=== PATIENT | female | born 1970 | race Caucasian/White ===

== ENCOUNTER → 2017-12-03 18:37 | Outpatient (CLI) | payer OTHER, SELFPAY ==
[2017-12-03 18:43] LABS: Color, Urine Yellow (Yellow); Glucose, Dipstick Normal (Normal); Ketone-Dipstick Negative (Negative); Leukocyte Esterase-Dipstick 500 /ul (Negative); Nitrite-Dipstick Negative (Negative); Occult Blood-Urine 50 /ul (Negative); Protein-Dipstick Negative (Negative); Specific Gravity, Urine 1.005 (1.002-1.030); Urine Bilirubin Dipstick Negative (Negative); Urine Clarity Clear (Clear); Urine Urobilinogen Normal (Normal)
== END ==
PROVIDERS: PCP Family Medicine; Visit Provider Urology
DX: R31.9 Hematuria, unspecified (principal)
CPT/HCPCS: 81002; 87086; 87088; 87186

== ENCOUNTER → 2018-06-24 17:14 | Outpatient (CLI) | payer OTHER, SELFPAY | PROVIDERS: PCP Family Medicine; Referring Provider Nurse Practitioner Adult Health; Visit Provider Nurse Practitioner Adult Health | DX: R30.0 Dysuria (principal); R82.998 Other abnormal findings in urine | CPT/HCPCS: 87086 ==

== ENCOUNTER → 2018-12-09 12:20 | Outpatient (CLI) | payer OTHER, SELFPAY | PROVIDERS: PCP Family Medicine; Referring Provider Nurse Practitioner Adult Health; Visit Provider Nurse Practitioner Adult Health | DX: R30.0 Dysuria (principal) | CPT/HCPCS: 87086 ==

== ENCOUNTER → 2019-03-17 | Outpatient (CLI) | payer OTHER, SELFPAY ==
--- NOTE | 2019-03-17 08:18 | CT_ITS ---
STUDY: CT ABDOMEN AND PELVIS WITH AND WITHOUT CONTRAST REASON FOR EXAM: Female, 48 years old. Case miscarrying RADIATION DOSAGE (If Supplied By Facility): CTDIvol = ( 16.27 ) mGy, DLP = ( 1347.50 ) mGycm TECHNIQUE: Transaxial images were obtained from the dome of the diaphragm to the symphysis pubis without oral contrast. 100mL IV Isovue 300 was administered. Sagittal and coronal images were reconstructed. Individualized dose optimization techniques were used for this CT. COMPARISON: None. FINDINGS: The visualized lung bases are unremarkable. The visualized portions of the heart are within normal limits. Metallic clips seen at the gastroesophageal junction. There is 2.8 x 2.4 cm almost exophytic cyst involving the lateral aspect of the left lobe of the liver. There is a second cyst measures 1.5 cm involving segment 7 and a third 1 cm cyst noted involving segment 8, the rest of the liver reveals no evidence of focal lesion or abnormal enhancement. The spleen is not enlarged no focal lesion. Both suprarenal glands are within normal limits. The pancreas is unremarkable. Both kidneys are normal in size, shape and position, no hydronephrosis or stone formation. The gallbladder is within normal limits no gallstones. The small bowel is within normal limits. The colon is loaded with stool, the appendix is intact, no fat stranding. Opaque medical pills are seen in the proximal and distal small bowel. The urinary bladder is unremarkable. The aorta and IVC are within normal limits. There is no free air or free fluid within the peritoneal cavity. CT/CT Abd/Pelvis W/WO Contrast IMPRESSION: Benign-appearing cysts in the liver Otherwise negative CT scan with and without contrast. Electronically Signed: Bela Dewittbrenton, at 13:23 EDT Tel , Service support ,
== END | disposition home or self-care (01) ==
LOC: CT 08:16
PROVIDERS: Family Provider Nurse Practitioner Primary Care; PCP Nurse Practitioner Primary Care; Referring Provider Nurse Practitioner Adult Health; Visit Provider Nurse Practitioner Adult Health
DX: R31.9 Hematuria, unspecified (principal)
CPT/HCPCS: 74178; Q9967

== ENCOUNTER → 2019-04-16 | Outpatient (CLI) | payer OTHER, SELFPAY | END | disposition home or self-care (01) | LOC: LAB 15:21 | PROVIDERS: Family Provider Nurse Practitioner Primary Care; PCP Nurse Practitioner Primary Care; Referring Provider Urology; Visit Provider Urology | DX: N39.0 Urinary tract infection, site not specified (principal) | CPT/HCPCS: 87086; 87088 ==

== ENCOUNTER → 2019-09-24 14:56 | Outpatient (CLI) | payer OTHER, SELFPAY | PROVIDERS: Family Provider Nurse Practitioner Primary Care; PCP Nurse Practitioner Primary Care; Visit Provider Nurse Practitioner Adult Health | DX: R30.0 Dysuria (principal) | CPT/HCPCS: 87086 ==

== ENCOUNTER → 2019-11-20 15:36 | Outpatient (CLI) | payer OTHER, SELFPAY ==
--- NOTE | 2019-11-20 15:39 | RAD_ITS ---
STUDY: X-RAY - LUMBAR SPINE REASON FOR EXAM: Female, 49 years old. INCREASED LOWER BACK PAIN TECHNIQUE: 5 view(s) of the lumbar spine were obtained. COMPARISON: None FINDINGS: Normal lumbar lordosis. There is no substantial scoliosis. There is a normal alignment of the vertebrae. There is a grade 1 anterolisthesis of L4 relative to L3 and L5. There is narrowing of the L4-5 disc space. The soft tissue structures are unremarkable. RAD/L/S Spine Min 4 Views IMPRESSION: Grade 1 anterolisthesis of L4 relative to L3 and L5. Narrowing of the L4-5 disc space. Electronically Signed: Stuart Lundy MD at 16:08 EST , Service support ,
== END ==
PROVIDERS: PCP Nurse Practitioner Primary Care; Referring Provider Nurse Practitioner Family; Visit Provider Nurse Practitioner Family
DX: M54.9 Dorsalgia, unspecified (principal); G89.29 Other chronic pain
CPT/HCPCS: 72110

== ENCOUNTER → 2019-11-24 | Outpatient (CLI) | payer OTHER, SELFPAY ==
--- NOTE | 2019-11-24 14:15 | EMB_PTH ---
PATIENT: LATIA STOCKTON LOC: [facility] U#:[id number] AGE/SX: 49/F ROOM: RE11/24/[address]: Dr. Jet Davalos MD : 1970 BED: DIS: 11/24/2019 SPEC #: [id number] RECD: 11/25/19 10:48 STATUS: RANJIT BARGER #: [id number] EMILIO: 11/24/19 14:[address]: Jet Davalos DEPT: SURGICAL PATHOLOGY RECD BY: Bradley Garvey ENTERED: 11/25/19 11:07 SP TYPE: ENDONestor BX/C ADALBERTO DR: Dayana Romano, AQUATIC FACILITY MANAGER-C Tissues: Endometrium, NOS Procedures: Surgery Specimen Level IV HEADER OPERATION: Endometrial biopsy PRE-OP DIAGNOSIS: N93.9 TISSUE SUBMITTED: Endometrial biopsy MICROSCOPIC DIAGNOSIS Endometrial biopsy: Proliferative endometrium. SJ:nicole 11/26/19 MICROSCOPIC DESCRIPTION Slides are reviewed. GROSS DESCRIPTION Received in fixative is one container labeled with the patient's name and designated EM biopsy. The specimen consists of multiple fragments of hemorrhagic jordan mucoid tissue that in aggregate measure 2 x 0.4 x 0.1 cm. The specimen is totally submitted in one cassette. / SJ:nicole 11/25/19 TC:4 CPT: 17208
== END | disposition home or self-care (01) ==
LOC: LABSPEC 11-25 11:17
PROVIDERS: PCP Nurse Practitioner Primary Care; Referring Provider Obstetrics & Gynecology; Visit Provider Obstetrics & Gynecology
DX: N85.8 Other specified noninflammatory disorders of uterus (principal); N92.0 Excessive and frequent menstruation with regular cycle
CPT/HCPCS: 88305

== ENCOUNTER 2020-05-09 08:47 | Day surgery (SDC) | payer OTHER, SELFPAY ==
[2020-05-04 11:38] LABS: Hematocrit 39.5 % (37-47); Hemoglobin 12.8 g/dL (12.0-15.0); Mean Corp Hgb Conc 32.4 g/dL (32-36); Mean Corpuscular Hgb 32.2 pg (27.0-32.0); Mean Corpuscular Volume 99.5 fL (81-99); Mean Platelet Vol. 9.2 fl (6.2-12.0); Platelet Count 418 K/mm3 (150-450); RBC Distribution Width CV 13.3 % (11.6-14.6); RBC Distribution Width SD 49.3 fl (35.1-43.9); Red Blood Count 3.97 M/mm3 (4.2-5.4); White Blood Count 9.8 K/mm3 (4.4-11.0)
[2020-05-04 11:46] LABS: Prothrombin Time (Protime)PT. 12.5 SECONDS (11.7-14.9)
[2020-05-04 11:47] LABS: Partial Thromboplast Time 24.4 Seconds (24.1-36.2)
[2020-05-04 12:21] LABS: ALB/GLOB Ratio 0.9 RATIO (0.9-2.4); AST(SGOT) 15 U/L (15-37); Alanine Aminotransfer ALT/SGPT 28 U/L (13-56); Albumin, Serum 3.6 g/dL (3.2-5.0); Alkaline Phosphatase 62 U/L (45-117); Anion Gap 9 (5-15); BUN 10 mg/dL (7-18); BUN/Creat Ratio 10.2 RATIO (10-20); Calcium,Total 8.6 mg/dL (8.5-10.1); Chloride 113 mmol/L (98-107); Creatinine, Serum 0.98 mg/dL (0.55-1.02); EST Glomerular Filtration Rate 64 mL/min (>60); Est Glom Filt Rate - Afr Amer 77 mL/min (>60); Globulin 3.8 g/dL (2.2-4.2); Glucose 87 mg/dL (74-106); Potassium 3.6 mmol/L (3.5-5.1); Protein, Total 7.4 g/dL (6.4-8.2); Sodium Level 143 mmol/L (136-145)
--- NOTE | 2020-05-08 15:24 | PCM.HP.BLA ---
History and Physical Date of Admission: 05/09/20 Surgical History and Physical Perla Farris, a 49 year old female 2 0 0 0 2, presents for RAVH/RSO, left salpingectomy and possible vaginal hysterectomy on May 09, 2020 at 11:00. -- Menorrhagia, Uterine Fibroids -- Menses long, heavy and painful. 49 y.o. G 2 P 2 non-smoker with menses lasting 3 weeks. Spouse had Vasectomy for control. Reports she started approximately two years ago with skipping periods, then would have one that would be very painful, long and heavy. US done at [facility] on 10/21/19 with thickened Endometrial lining and Fibroid. Would like to stop the craziness. Reports she has felt weak periodically from all the bleeding previously and she is ready to have a Hysterectomy and be done. She stopped taking Provera as it was not helping her. Has a large mesh from hernia repair superior to umbilicus. Wants just right ovary out. If vag hyst possible then ok with leaving both ovaries. Heavy, painful prolonged periods which began 2 years ago. Perla claims it started gradually and has been present skipping periods in last year. It occurs intermittantly. EMBx normal; 3 month trial with intermittant Provera withdrawal not helpful; still bled most days. MEDICATIONS HISTORY: Patient is also takin. Advair Diskus 500 mcg-50 mcg/dose powder for inhalation, 1puff BID 2. amitriptyline 25 mg tablet, 1 qhs prn 3. diltiazem ER 360 mg capsule,24 hr,extended release, 1 qd 4. EpiPen 0.3 mg/0.3 mL injection, auto-injector, PRN 5. losartan 50 mg tablet, 1 qd 6. Singulair 10 mg tablet, 1 qd 7. Topamax 200 mg tablet, 1 BID 8. tramadol 50 mg tablet, 1 po q6hr PRN 9. valacyclovir 500 mg tablet, 1 tab BID or TID 10. Ventolin HFA 90 mcg/actuation aerosol inhaler, 2puffs BID 11. Wellbutrin XL 300 mg 24 hr tablet, extended release, 1 1/2tabs qd ALLERGIES: Sulfa (Sulfonamide Antibiotics), Severe nausea & vomiting, Codeine, Wheezing, Penicillins, Hives and/or rash, Gluten and Influenza-like illness Infections - Chicken pox Illnesses - Arthritis,Connective Tissue Dz, Accidents - None Hospitalizations - see surgery Review of Systems: GENERAL - Denies fever, or chills SKIN - Denies skin changes EYES - Denies visual changes EARS - Denies difficulty hearing NOSE - Denies nasal congestion or bleeding MOUTH - Denies sore throat or difficulty swallowing NECK - Denies pain or swelling RESPIRATORY - Denies shortness of breath or wheezing CARDIOVASCULAR - Denies palpitations or chest pain GASTROINTESTINAL - Denies nausea, vomiting, diarrhea, constipation GENITOURINARY - Denies dysuria, frequency of urination, incontinence of urine MUSCULOSKELETAL - Denies joint or muscle pain NEUROLOGICAL - Denies localized numbness or weakness PSYCHIATRIC - Denies depression or anxiety ENDOCRINE - Denies heat or cold intolerance, weight loss or gain HEMATO-IMMUNOLOGIC - Denies excessive bleeding with cuts SOCIAL HISTORY: Alcohol Use - occasionally Smoking - Never Diet - Gluten Free Lifestyle - moderate stress lifestyle and Exercise - active Seat Belt Use - always 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 2006 & 2017 Hernia Repair . 11/2017 Loop recorder Implant . 11/2015 Sliding Hiatal Hernia Repair PHYSICAL EXAM BP- 138/70 Sitting, Right arm, regular cuff Weight- 200.98874 lbs Height- 66 inch BMI:32.35 CONSTITUTIONAL - NAD, well nourished, and well developed SKIN - No rash, lesions, or ulcers HEENT - Normocephalic, PERRLA, EOMI NECK - No nodes, no nuchal rigidity and thyroid normal size and texture LYMPH NODES - Palpation of lymph nodes in neck and groins within normal limits LUNGS - CTA x2 without wheezes, crackles or rales CARDIAC - Regular rate and rhythm without rubs, murmurs, or gallops ABDOMEN - Without hepatosplenomegaly, distention, masses, rebound, or guarding; normal bowel sounds; no hernias and midline incision superior to umbilicus NEUROLOGICAL - Cranial nerves II-XII grossly intact PSYCHIATRIC - A and O to time, place, person, mood and affect External Genital Vagina - non-tender without lesions Urethra/Urethral Meatus - non-tender Bladder - non-tender Vagina - vaginal chang are pink and moist without loss of rugae and no evidence of atrophy Cervix - without cervical motion tenderness and has normal size and features without evident lesions Uterus - multiparous size 6 cm & wt 75-125 g Adnexa - clear without masses or tenderness ASSESSMENT/PLAN: 1. Premenopause Menorrhagia and Uterine Leiomyoma Unspec EMBx OK. Intermittent provera withdrawal not helpful. Would like to proceed with RAVH/BS/RO. Discussed RBAs and all questions answered. If Vaginal Hysterectomy possible pt ok with this option to avoid disrupting abdominal mesh.
[2020-05-09] VITALS (12 sets, daily range): BP systolic 106–138; BP diastolic 57–74; PULSE 64–88; RESP 16–18; TEMP 36.7–37.6; O2SAT 99–100; BMI 31.2
[2020-05-09 09:31] LABS: Internal QC Validated? YES +Cl - CLEAR BKGD; Pregnancy, Urine Negative Negative
[2020-05-09] MEDS: Lactated Ringers 1,000 ML 100 ML IV (09:58)
--- NOTE | 2020-05-09 10:55 | HYST_PTH ---
PATIENT: LATIA STOCKTON LOC: [facility] [place] U#:[id number] AGE/SX: 49/F ROOM: RE05/09/[address]: Dr. Jet Davalos MD : 1970 BED: DIS: 05/10/2020 SPEC #: [id number] RECD: 05/09/20 12:26 STATUS: RANJIT DENITA #: [id number] EMILIO: 05/09/20 10:[address]: Jet Davalos DEPT: SURGICAL PATHOLOGY RECD BY: Ken Fallon ENTERED: 05/09/20 12:37 SP TYPE: HYSTERECT OTHR DR: Dayana Romano, ACQUISITION ASSOCIATE-C Tissues: Uterus, NOS Procedures: Surgery Specimen Level V HEADER OPERATION: Vaginal hysterectomy, right salpingo-oophorectomy PRE-OP DIAGNOSIS: Premenopause menorrhagia and uterine leiomyoma TISSUE SUBMITTED: Uterus, cervix, right fallopian tube and ovary MICROSCOPIC DIAGNOSIS Uterus, cervix, right fallopian tube and right ovary, vaginal hysterectomy and right salpingo-oophorectomy: Cervix - mild chronic inflammation. Endometrium - weakly secretory endometrium with focal changes consistent with exogenous hormone effect. Myometrium - intramural and subserosal leiomyomas (largest measuring 2.5 cm in greatest dimension). - Adenomyosis. Right fallopian tube - no pathologic diagnosis. Right ovary - a physiologic hemorrhagic corpus luteum cyst. SJ:nicole 05/10/20 MICROSCOPIC DESCRIPTION Slides are reviewed. GROSS DESCRIPTION Received in fixative is one container labeled with the patient's name and designated uterus, cervix, bilateral fallopian tubes and right ovary. The specimen consists of a hysterectomy specimen consisting of uterus with cervix and detached one fallopian tube and ovary identified as right. The right fallopian tube is not identified in the submitted specimen. The uterus with cervix weighs 173 gm and measures 11?x 6 x 5.5 cm. The serosal surface shows a small, jordan, subserosal nodule. The ectocervical mucosa is focally eroded. The external os is patulous in contour. The endocervical canal measures 4 cm in length and the endocervical mucosa is jordan, glistening and unremarkable. The triangular endometrial cavity measures 5 cm in length and up to 3 cm in width. The endometrium is jordan, glistening without any mass lesion and measures 0.1 cm in thickness. Sections of the uterine wall reveal multiple intramural masses and one small subserosal nodular mass. The largest mass measures 2.5 cm in diameter. Sections of these masses reveal jordan whorled cut surfaces without areas of hemorrhage, necrosis or cystic degeneration. The uninvolved uterine wall measures up to 3.5 cm in thickness. The fallopian tube measures 5 cm in length and 0.5 cm in diameter. The fimbrial end is identified. Sections reveal unremarkable cut surfaces. No tubo-ovarian adhesions are identified. The left ovary measures 2 x 2 x 1?cm. Sections reveals a hemorrhagic corpus luteum measuring 1 cm in greatest dimension. Airport Duty Manager sections are submitted in ten cassettes as follows: 1 - anterior cervix, 2 - posterior cervix, 3 & 4 - anterior uterine wall, 5 & 6 - posterior uterine wall, 7 - smaller nodular masses, 8 - largest nodular mass, 9 - right ovary, 10 - right fallopian tube and ovary. / SJ:nicole 05/09/20 TC:3 CPT: 05061
--- NOTE | 2020-05-09 11:56 | OP.PCM_ITS ---
Report of Operation Date of Procedure: 05/09/20 Pre-Operative Diagnosis: Menorrhagia, Uterine Fibroids Post-Operative Diagnosis: Menorrhagia, Uterine Fibroids Surgery/Procedure Performed:: Vaginal Hysterectomy and Right Salpingo- Oophorectomy Description of Surgical Findings:: 12 cm uterus with cervix that prolapsed to within 2 cm of the vaginal introitus. Scar on upper abdomen vertical consistent with prior large mesh placement. Normal-appearing fallopian tubes and ovaries. Moderate cystocele and rectocele. big data software engineer: Rasheed Baron big data software engineer: Nae Butler Type of Anesthesia:: General - Endotracheal Anesthesiologist: Josh Martinez Specimen's removed: Uterus and right fallopian tube and ovary Drains: Rivera to straight drain Estimated Blood Loss (mL): 100 cc Fluids Replaced: Crystalloid Description of Procedure: Surgeon: Jet Davalos MD, FACOG Indications: This is a 49-year-old who is been having problems with extremely heavy periods lasting 3 out of 4 weeks monthly. She also had a prior large mesh placement and is known to have adhesions. Conservative measures have not been helpful. Given this the patient desires that we proceed the above procedure. She was scheduled for a robotic assisted vaginal hysterectomy with possible vaginal hysterectomy should this be feasible. She has been counseled regarding the risk and indications of this procedure including the possibility of b leeding, infection, and injury to surrounding structures such as bowel bladder. All questions were answered. Procedure: Patient was taken to the operating room where after induction of general anesthesia she was placed in the dorsal lithotomy position and prepped and draped in the usual sterile fashion. The prolapse of the uterus and vagina was assessed and it was felt that vaginal hysterectomy would be feasible. A Rivera catheter was placed. Anterior cervix was grasped with a tenaculum and anterior cervix circumscribed with cautery on a setting of 35 W coagulation. Anterior vaginal mucosa was undermined and anterior peritoneum was easily entered. The posterior aspect of the cervix was circumscribed with a knife and posterior peritoneum easily entered. Progressive bites were taken on either side of the uterine cervix and each pedicle ligated with 0 Vicryl suture. Superior pedicles were ligated ?2 with 0 Vicryl suture and sidewall pedicles were examined and oversewn where necessary with [id number] 0 Vicryl suture to achieve hemostasis. The right fallopian tube and ovary were also removed ligating the pedicle with 0 Vicryl suture x2. Left fallopian tube and ovary appeared normal. After removing the uterus and right fallopian tube and ovary, the posterior vaginal cuff was oversewn with running locked 0 Vicryl suture. Hemostasis was noted and peritoneum was closed in a pursestring fashion incorporating superior pedicles into the stitch. Vaginal cuff was then closed front to back with interrupted [id number] 0 Vicryl suture. Hemostasis was noted. Patient tolerated the procedure well was taken to recovery room in satisfactory condition; sponge instrument and needle counts were all reportedly correct. Estimated blood loss for the case was less than 100 cc. Cefotan 2 g IV was given prior to beginning the operative procedure. There were no apparent complications of the surgery. Specimen to pathology was uterus and right fallopian tube and ovary Grafts/Implants Used: None - Complications None - Admit VTE Documentation VTE Present on Admission: Yes VTE Mechan Device Prophylaxis: SCD's VTE Pharm Prophylaxis ordered?: Yes
--- NOTE | 2020-05-09 12:07 | DCINST_ITS ---
Discharge Diet: No Restrictions Discharge Activity: Return to Normal Activity, May Not Drive - while taking narcotic pain medications., May Shower, May Take a Tub Bath May resume sexual activity in: 6-8 weeks Call your doctor if your incision/area has: Continuous Slow Oozing, Sudden Inc reased Bleeding, Increased Pain/ Swelling, Increased Redness, Foul Smelling Discharge Call your doctor if you observe: Fever of 101 or Higher, Inability to urinate, Inability to have a bowel movement, Using more than one pad per hour Allergies/Adverse Reactions: Allergies codeine Allergy (Verified 04/28/20 09:03) Anaphylaxis Penicillins [PCN] Allergy (Verified 04/28/20 09:03) Rash Sulfa (Sulfonamide Antibiotics) Allergy (Verified 04/28/20 09:03) Vomiting Medications to take at Discharge Albuterol Inhaler [Ventolin Hfa (SP)] 2 puff INHALATION Q6H PRN PRN 04/28/20 Amitriptyline HCl [Elavil] 25 mg PO PRN PRN 04/28/20 Apremilast [Otezla] 30 mg PO BID 04/28/20 Cyanocobalamin (Vitamin B-12) [Vitamin B-12] 1,000 mcg PO DAILY 04/28/20 Diltiazem HCl [Diltiazem ER] 360 mg PO DAILY 04/28/20 Epi Pen (for allergic rxn) 0.3 mg IM X1 04/28/20 Famciclovir [Famvir] 500 mg PO BID PRN 04/28/20 Fexofenadine HCl [Noemi Allergy] 60 mg PO DAILY 04/28/20 Fluticasone/Salmeterol [Advair 500-50 Diskus] 1 ea IH BID 04/28/20 Lansoprazole [Prevacid] 15 mg PO DAILY 04/28/20 Losartan Potassium [Cozaar] 50 mg PO DAILY 04/28/20 Magnesium Oxide [Magnesium] 400 mg PO DAILY 04/28/20 Montelukast [Singulair] 10 mg PO DAILY 04/28/20 Topiramate [Topamax] 200 mg PO BID 04/28/20 Vitamin E 100 unit PO DAILY 04/28/20 buPROPion XL [Wellbutrin Xl] 150 mg PO DAILY 04/28/20 buPROPion XL [Wellbutrin Xl] 300 mg PO DAILY 04/28/20 traMADol [Ultram (G)] 50 mg PO Q6H PRN PRN 04/28/20 Docusate Sodium [Colace] 100 mg PO BID PRN PRN #60 cap 05/09/20 Oxycodone [Oxyir] 5 mg PO Q6H PRN PRN 7 Days #10 tablet 05/09/20 The following prescriptions were given: Docusate Sodium [Colace] 100 mg PO BID PRN PRN #60 cap PRN Reason: Constipation Transmission Status: Pending to [facility] Oxycodone [Oxyir] 5 mg PO Q6H PRN PRN 7 Days #10 tablet PRN Reason: Pain Score 6-10/10 Transmission Status: Sent to [facility] Primary Care Physician: Dayana Romano NP-C [Primary Care Provider] - Test Results: Test results from this visit will be discussed in further detail at your follow- up appointment, if applicable. Please Follow Up With: Jet Davalos MD When: 2 to 3 weeks
[2020-05-09] MEDS: HYDROmorphone 1 MG/ML Syringe 0.5 MG IV (13:57)
[2020-05-09] MEDS: Albuterol 2.5 MG/3 ML VIAL.NEB. INHALATION ×2 (14:02→19:05)
[2020-05-09] MEDS: Dextrose 5%-Lactated Ringers 1,000 ML 125 ML IV ×2 (15:13→23:25)
[2020-05-09] MEDS: Ketorolac 30 MG/ML Syringe IV ×2 (17:16→23:36)
[2020-05-09] MEDS: 0.9% Saline Lock 10 ML Syringe IV (17:16)
[2020-05-09] MEDS: Budesonide Respules 0.5 MG/2 ML AMPUL.NEB. INHALATION (19:05)
[2020-05-09] MEDS: oxyCODONE 5 MG Tablet PO (19:48)
[2020-05-09] MEDS: Enoxaparin 30 MG/0.3 ML Syringe SC (21:25)
[2020-05-09] MEDS: Topiramate 200 MG Tablet PO (21:26)
[2020-05-09] MEDS: Montelukast 10 MG Tablet PO (21:26)
[2020-05-09] MEDS: Acetaminophen 500 MG Tablet 1000 MG PO (21:31)
[2020-05-10] VITALS: BP 139/77; PULSE 62; RESP 16; TEMP 37.1; O2SAT 100
[2020-05-10] MEDS: oxyCODONE 5 MG Tablet PO ×2 (02:50→10:57)
[2020-05-10 03:00] VITALS: BP 139/78; PULSE 67; RESP 16; TEMP 37; O2SAT 100
[2020-05-10] MEDS: Ketorolac 30 MG/ML Syringe IV ×2 (05:33→11:55)
[2020-05-10 05:51] LABS: Hemoglobin 11.5 g/dL (12.0-15.0); Mean Corp Hgb Conc 32.9 g/dL (32-36); Mean Corpuscular Volume 100.3 fL (81-99); Mean Platelet Vol. 9.2 fl (6.2-12.0); Platelet Count 338 K/mm3 (150-450); RBC Distribution Width CV 13.4 % (11.6-14.6); RBC Distribution Width SD 48.8 fl (35.1-43.9); Red Blood Count 3.49 M/mm3 (4.2-5.4); White Blood Count 10.9 K/mm3 (4.4-11.0)
[2020-05-10 06:04] LABS: Creatinine, Serum 0.91 mg/dL (0.55-1.02); EST Glomerular Filtration Rate 70 mL/min (>60); Est Glom Filt Rate - Afr Amer 85 mL/min (>60); Estimated Creatinine Clearance 70.01 ml/min
[2020-05-10 06:56] VITALS: PULSE 85; RESP 24; O2SAT 99
[2020-05-10] MEDS: Albuterol 2.5 MG/3 ML VIAL.NEB. INHALATION (06:56)
[2020-05-10] MEDS: Budesonide Respules 0.5 MG/2 ML AMPUL.NEB. INHALATION (06:56)
--- NOTE | 2020-05-10 08:13 | PN.OBGYN_ITS ---
Subjective: Patient without complaints. Tolerating diet well. Positive flatus. Rivera catheter still in so she has not yet voided. Minimal vaginal bleeding reported. Objective: Minimal vaginal bleeding reported. Hemoglobin and creatinine okay. Good urine output. - Physical Exam Vitals/I&O's: Vital Signs Temp Pulse Resp BP Pulse Ox 98.6 F 85 24 H 139/78 H 99 05/10/20 03:00 05/10/20 06:56 05/10/20 06:56 05/10/20 03:00 05/10/20 06:56 Oxygen Flow Rate (L/min) 6 Oxygen Delivery Method Room Air Weight: 193 lb 9.054 oz Body Mass Index (BMI) 31.2 Intake and Output for Last 24 Hours 05/08/20 05/09/20 05/10/20 23:59 23:59 23:59 Intake Total 2453.33 / 2753.33 1500 / 1500 Output Total 1650 / 2125 2225 / 2225 Balance 803.33 / 628.33 -725 / -725 Laboratory Results 05/09/20 09:10: Urine Test Negative 05/10/20 05:15: WBC 10.9, RBC 3.49 L, Hgb 11.5 L, Hct 35.0 L, MCV 100.3 H, MCH 33.0 H, MCHC 32.9, RDW Std Deviation 48.8 H, RDW Coeff of Og 13.4, Plt Count 338, MPV 9.2 05/10/20 05:15: Creatinine 0.91, Estim Creat Clear Calc 70.01, Est GFR (MDRD) Af Amer 85, Est GFR (MDRD) Non-Af 70 Current Medications Acetaminophen (Tylenol) 1,000 mg PO Q8H PRN PRN PRN Reason: Pain Score 1-3/10 or Fever Last Admin: 05/09/20 21:31 Dose: 1,000 mg Documented by: Acyclovir (Zovirax) 800 mg PO BID PRN PRN PRN Reason: COLD SORES Albuterol Sulfate (Ventolin Aerosols) 2.5 mg INHALATION Q6H PRN PRN PRN Reason: ASTHMA Albuterol Sulfate (Ventolin Aerosols) 2.5 mg INHALATION Q6HWA.RT NIKO Last Admin: 05/10/20 06:56 Dose: 2.5 mg Documented by: Amitriptyline HCl (Elavil) 25 mg PO QHS PRN PRN PRN Reason: SLEEP Budesonide (Pulmicort Aerosol) 0.5 mg INHALATION Q12H.RT [facility] Last Admin: 05/10/20 06:56 Dose: 0.5 mg Documented by: Bupropion HCl (Wellbutrin Xl) 150 mg PO DAILY [facility] Bupropion HCl (Wellbutrin Xl) 300 mg PO DAILY [facility] Diltiazem HCl (Cardizem Cd) 360 mg PO DAILY [facility] Docusate Sodium (Colace) 100 mg PO BID PRN PRN PRN Reason: Constipation Hydromorphone HCl (Dilaudid Inj) 0.5 mg IV Q3H PRN PRN PRN Reason: Pain Score 4-10/10 Last Admin: 05/09/20 13:57 Dose: 0.5 mg Documented by: Dextrose/Lactated Ringer's () 1,000 mls @ 125 mls/hr IV .Q8H [facility] Last Admin: 05/10/20 05:33 Dose: Not Given Documented by: Ketorolac Tromethamine (Toradol (Bkc)) 30 mg IV Q6H [facility] Stop: 05/14/20 17:31 Last Admin: 05/10/20 05:33 Dose: 30 mg Documented by: Loratadine (Claritin) 10 mg PO DAILY [facility] Losartan Potassium (Cozaar) 50 mg PO DAILY [facility] Magnesium Oxide (Mag-Ox 400) 400 mg PO DAILY [facility] Montelukast Sodium (Singulair) 10 mg PO QHS [facility] Last Admin: 05/09/20 21:26 Dose: 10 mg Documented by: Ondansetron HCl (Zofran) 4 mg IV Q4H PRN PRN PRN Reason: NAUSEA Oxycodone HCl (Oxyir) 5 mg PO Q4H PRN PRN PRN Reason: Pain Score 4-10/10 Last Admin: 05/10/20 02:50 Dose: 5 mg Documented by: Pantoprazole Sodium (Protonix) 20 mg PO DAILY [facility] Simethicone (Mylicon) 80 mg PO PCHS [facility] Last Admin: 05/09/20 21:24 Dose: 80 mg Documented by: Sodium Chloride () 10 - 40 ml IV UD PRN PRN Reason: SALINE FLUSH Last Admin: 05/09/20 17:16 Dose: 10 ml Documented by: Topiramate (Topamax) 200 mg PO BID NIKO Last Admin: 05/09/20 21:26 Dose: 200 mg Documented by: Medical Necessity - Tobacco Use Smoking Status: Former smoker Tobacco Use: Non-smoker Assessment/Plan Doing well postoperative day #1 status post vaginal hysterectomy and right salpingo-oophorectomy. Will discontinue Rivera and released to home when able to void on own. Home-going instructions given.
[2020-05-10 09:00] VITALS: BP 127/70; PULSE 70; RESP 16; TEMP 37.2; O2SAT 100
[2020-05-10] MEDS: Loratadine 10 MG Tablet PO (10:50)
[2020-05-10] MEDS: Pantoprazole Sodium 20 MG Tablet PO (10:50)
[2020-05-10] MEDS: dilTIAZem CD 180 MG Capsule 360 MG PO (10:50)
[2020-05-10] MEDS: Topiramate 200 MG Tablet PO (10:51)
[2020-05-10] MEDS: buPROPion (XL) 150 MG TABLET.XL PO (10:51)
[2020-05-10] MEDS: buPROPion (XL) 300 MG TABLET.XL PO (10:51)
[2020-05-10] MEDS: Magnesium Oxide 400 MG Tablet PO (10:51)
[2020-05-10] MEDS: Losartan Potassium 50 MG Tablet PO (10:51)
--- NOTE | 2020-05-10 11:43 | PHA.DC.MC ---
Pharmacy Service has performed discharge medication reconciliation and counseling for this patient. The patient was counseled on the following discharge medications and changes in medications for homegoing were reviewed. 1. OXYCODONE 2. DOCUSATE The Reason for Use, instructions for use, and potential side effects were reviewed for all new medications. The patient's questions regarding all of their medications were answered. The patient was able to verbally demonstrate an understanding of their discharge medications. Home Medications Albuterol Inhaler [Ventolin Hfa (SP)] 2 puff INHALATION Q6H PRN PRN 04/28/20 Amitriptyline HCl [Elavil] 25 mg PO PRN PRN 04/28/20 Apremilast [Otezla] 30 mg PO BID 04/28/20 Cyanocobalamin (Vitamin B-12) [Vitamin B-12] 1,000 mcg PO DAILY 04/28/20 Diltiazem HCl [Diltiazem ER] 360 mg PO DAILY 04/28/20 Epi Pen (for allergic rxn) 0.3 mg IM X1 04/28/20 Famciclovir [Famvir] 500 mg PO BID PRN 04/28/20 Fexofenadine HCl [Noemi Allergy] 60 mg PO DAILY 04/28/20 Fluticasone/Salmeterol [Advair 500-50 Diskus] 1 ea IH BID 04/28/20 Lansoprazole [Prevacid] 15 mg PO DAILY 04/28/20 Losartan Potassium [Cozaar] 50 mg PO DAILY 04/28/20 Magnesium Oxide [Magnesium] 400 mg PO DAILY 04/28/20 Montelukast [Singulair] 10 mg PO DAILY 04/28/20 Topiramate [Topamax] 200 mg PO BID 04/28/20 Vitamin E 100 unit PO DAILY 04/28/20 buPROPion XL [Wellbutrin Xl] 150 mg PO DAILY 04/28/20 buPROPion XL [Wellbutrin Xl] 300 mg PO DAILY 04/28/20 traMADol [Ultram (G)] 50 mg PO Q6H PRN PRN 04/28/20 Docusate Sodium [Colace] 100 mg PO BID PRN PRN #60 cap 05/09/20 Oxycodone [Oxyir] 5 mg PO Q6H PRN PRN 7 Days #10 tab 05/09/20 The patient's discharge medication list was reviewed for discrepancies and discrepancies were resolved.
[2020-05-10] MEDS: 0.9% Saline Lock 10 ML Syringe IV (11:55)
[2020-05-10] MEDS: Ondansetron 4 MG/2 ML Vial IV (11:55)
[2020-05-10 12:08] VITALS: BP 151/79; PULSE 79; RESP 18; TEMP 37.2; O2SAT 100
== END 2020-05-10 12:09 | disposition home or self-care (01) ==
LOC: SDC 08:47 → AC 08:48 → MS3 12:24
PROVIDERS: Anesthesiology; PCP Nurse Practitioner Primary Care; Referring Provider Obstetrics & Gynecology; Visit Provider Obstetrics & Gynecology
PROC: 0UT94ZZ Resection of Uterus, Percutaneous Endoscopic Approach (ICD-10-PCS; CPT 58262; principal; 2020-05-09 10:35)
DX: D25.1 Intramural leiomyoma of uterus (principal); D25.2 Subserosal leiomyoma of uterus; N83.11 Corpus luteum cyst of right ovary; N92.4 Excessive bleeding in the premenopausal period; Z11.59 Encounter for screening for other viral diseases; I11.0 Hypertensive heart disease with heart failure; I50.9 Heart failure, unspecified; K58.9 Irritable bowel syndrome, unspecified; K21.9 Gastro-esophageal reflux disease without esophagitis; F41.9 Anxiety disorder, unspecified; F32.9 Major depressive disorder, single episode, unspecified; L40.50 Arthropathic psoriasis, unspecified; M19.90 Unspecified osteoarthritis, unspecified site; G43.909 Migraine, unspecified, not intractable, without status migrainosus; J45.909 Unspecified asthma, uncomplicated; Z79.899 Other long term (current) drug therapy; Z87.891 Personal history of nicotine dependence
CPT/HCPCS: 00944; 58262; 36415; 80053; 81025; 82565; 85027; 85610; 85730; 86850; 86900; 86901; 87635; 88307; 94640; 94799; 99251; J7120; A4216; G0463; J2405; U0003

== ENCOUNTER 2020-06-04 14:20 | Emergency (ER) | payer OTHER, SELFPAY ==
[2020-05-09 13:15] VITALS: BMI 31.2
[2020-06-04 14:21] VITALS: BP 147/73; PULSE 86; RESP 16; TEMP 36.7; O2SAT 100; BMI 32.3
--- NOTE | 2020-06-04 14:24 | CT_ITS ---
STUDY: CT ABDOMEN AND PELVIS WITHOUT CONTRAST REASON FOR EXAM: Female, 49 years old. STABBING PAINS LOWER ABDOMEN. S/P HYSTERECTOMY (STILL HAS LEFT OVARY) 4 WEEKS AGO. HISTORY OF UTI''S AND HIATAL HERNIA REPAIR RADIATION DOSAGE (If Supplied By Facility): CTDIvol = ( 7.55 ) mGy, DLP = ( 356.55 ) mGycm TECHNIQUE: Transaxial images were obtained from the dome of the diaphragm to the symphysis pubis without oral contrast, and without intravenous contrast. Sagittal and coronal images were reconstructed. Individualized dose optimization techniques were used for this CT. COMPARISON: March 17 2019 FINDINGS: Lung bases are clear. There is thickening and mild dilation of the distal esophagus with suture line at the diaphragmatic hiatus. There is no intestinal obstruction. There is sigmoid diverticulosis without diverticulitis. There are 3 hepatic cysts. There is no biliary dilation. Gallbladder is normal. Kidneys, adrenals, spleen and pancreas are intact. There are no urinary calculi or hydronephrosis. Osseous structures are intact with stable grade 1 L4-L5 degenerative anterolisthesis. CT/Abdomen/Pelvis without Cont IMPRESSION: No acute abdominal findings. Thickened distal esophagus, incompletely evaluated, specialty referral is advised. Electronically Signed: Ankit Corbett, at 15:30 EDT Tel , Service support ,
--- NOTE | 2020-06-04 14:35 | ED.DCSUM_ITS ---
History of Present Illness Chief Complaint: Abd Pain Informant: Patient Onset: Days Maximum Severity: Mild Narrative: The patient complains of intermittent paroxysmal sharp stabbing pains to the lower abdominal area, she is about 4 weeks status post vaginal hysterectomy related to vaginal bleeding and pelvic pain, she is eating and drinking well normal bowel bladder habits no vaginal bleeding or discharge she is currently asymptomatic. Nothing triggers the pain, she is able to do all of her daily activities Past Medical History - Allergies and Home Meds Allergies/Adverse Reactions: Allergies codeine Allergy (Verified 06/04/20 14:21) Anaphylaxis Penicillins [PCN] Allergy (Verified 06/04/20 14:21) Rash Sulfa (Sulfonamide Antibiotics) Allergy (Verified 06/04/20 14:21) Vomiting Primary Care Physician: Dayana Romano COUNT TEAM MEMBER, COUNT TEAM MEMBER-C [Primary Care Provider] - Past Medical History: - - Clues as above she also has a back problem she had lumbar spine injections 2 weeks ago Smoking Status: Former smoker Review of Systems General: Denies: Chills, Fever, Sweats Eyes: Denies: Visual changes - bilaterally, Diplopia ENT: Denies: Rhinorrhea, Sore throat Cardiovascular: Denies: Chest pain, Palpitations Respiratory: Denies: Dyspnea, Cough, Dyspnea on exertion Gastrointestinal: Reports: Abdominal pain. Denies: Nausea, Vomiting, Diarrhea, Melena, Hematochezia Genitourinary: Denies: Dysuria, Hematuria, Frequency Musculoskeletal: Denies: Back pain, Extremity Pain Skin: Denies: Rash, Wounds Neurological: Denies: Headache, Weakness, Numbness Physical Exam Vital Signs/Narrative: Vital Signs Temp Pulse Resp BP Pulse Ox 06/04/20 14:21 98.1 F 86 16 147/73 H 100 General: Well nourished, Well developed, No Acute Distress Head: Normocephalic, Atraumatic Eyes: Perrl, EOMI ENT: Moist mucous membranes, No rhinorrhea Neck: Supple, Nontender Cardiovascular: Regular rate, Regular rhythm, No murmurs Respiratory: No distress, CTA bilaterally, Chest nontender Abdomen: Soft, Nontender, Nondistended, Normal bowel sounds, - - She points to the lower left and right quadrants there is no areas of tenderness rebound guarding here no fullness, she denies any vaginal bleeding or discharge her back is unremarkable her extremities are unremarkable Back: Nontender, Normal Inspection Extremities: Nontender, No edema Skin: Normal color, No rash Neurological: Alert, Oriented x3, Cranial nerves II-XII grossly intact, Normal Strength, Normal Sensation Psychological: Normal affect, Normal Mood Diagnostic/Tx/Re-eval - Medical Decision Making Paroxysms of sharp intermittent stabbing pain for a few days given her age given all the above screening labs CT ED screening evaluation results are unremarkable including CT see those reports, CT notes some thickening distal esophagus cannot further delineate Please note the patient has had a history of surgery to repair a sliding hiatal hernia and she has been seen by GI Discussed all the above with patient she has no symptoms currently explained to her the exact etiology of these paroxysmal sharp pain are unclear she will follow-up with her affirmative action officer outpatient providers and we also discussed differential related to the distal esophagus and she would require additional management to determine etiology of this abnormality incompletely seen on CT we did discuss the concept of cancer other occult conditions and she will follow-up Home stable Final impression intermittent sharp paroxysms of pain to the pelvis, status post vaginal hysterectomy, thickened distal esophagus incompletely seen on CT ED Disposition - Plan for ED Patient: Instructions: ED Abdominal Pain Unkn Cause Fem Referrals: Dayana Romano NP, COUNT TEAM MEMBER-C [Primary Care Provider] - Additional Instructions: Please follow-up with your outpatient providers for all the above in addition you will need additional management related to thickened esophagus incompletely seen on CT
[2020-06-04] MEDS: 0.9% Normal Saline 1,000 ML 125 ML IV (14:41)
[2020-06-04] MEDS: Ondansetron 4 MG/2 ML Vial IV (14:41)
[2020-06-04] MEDS: morphine 8 MG/ML Syringe IV (14:42)
[2020-06-04 14:46] LABS: Absolute Lymphocyte Count 1.86 X10^3/uL (0.83-4.51); Absolute Neutrophil Count 5.8 X10^3/uL (2.0-7.7); Basophil# 0.03 X10^3/uL; Basophil% 0.4 % (0-1); Eosinophil# 0.12 X10^3/uL; Eosinophils% 1.4 % (0-5); Hematocrit 41.3 % (37-47); Hemoglobin 13.6 g/dL (12.0-15.0); Lymphocyte # 1.86 X10^3/ul (4.0); Mean Corp Hgb Conc 32.9 g/dL (32-36); Mean Corpuscular Hgb 32.6 pg (27.0-32.0); Mean Platelet Vol. 9.1 fl (6.2-12.0); Monocyte# 0.57 X10^3/uL; Monocyte% 6.7 % (0-10); NRBC Flagged by Analyzer 0 % (0-5); Neutrophil # 5.82 X10^3/uL (2.7-7.7); Neutrophil % 68.8 % (47-70); Platelet Count 348 K/mm3 (150-450); RBC Distribution Width CV 12.6 % (11.6-14.6); RBC Distribution Width SD 45.1 fl (35.1-43.9); Red Blood Count 4.17 M/mm3 (4.2-5.4); White Blood Count 8.5 K/mm3 (4.4-11.0)
[2020-06-04 14:59] LABS: Bacteria 0 SEEN /hpf (None Seen); Mucous, Urine 0 SEEN /hpf (<or=2+); Red Blood Cells-Urine 0 SEEN /hpf (0-5); Squamous Epithelial Cells - UA 0 SEEN /hpf (5-10); White Blood Cells 0 SEEN /hpf (0-5)
[2020-06-04 15:11] LABS: Color, Urine Yellow (Yellow); Glucose, Dipstick Normal (Normal); Ketone-Dipstick Negative (Negative); Leukocyte Esterase-Dipstick Negative /ul (Negative); Nitrite-Dipstick Negative (Negative); Occult Blood-Urine Negative /ul (Negative); Protein-Dipstick Negative (Negative); Urine Bilirubin Dipstick Negative (Negative); Urine Clarity Clear (Clear); Urine Urobilinogen Normal (Normal)
[2020-06-04 15:19] LABS: AST(SGOT) 14 U/L (15-37); Alanine Aminotransfer ALT/SGPT 22 U/L (13-56); Albumin, Serum 3.5 g/dL (3.2-5.0); Alkaline Phosphatase 73 U/L (45-117); Anion Gap 4 (5-15); BUN 14 mg/dL (7-18); BUN/Creat Ratio 14.6 RATIO (10-20); Calcium,Total 8.5 mg/dL (8.5-10.1); Chloride 113 mmol/L (98-107); Creatinine, Serum 0.96 mg/dL (0.55-1.02); EST Glomerular Filtration Rate 66 mL/min (>60); Est Glom Filt Rate - Afr Amer 79 mL/min (>60); Estimated Creatinine Clearance 66.36 ml/min; Globulin 3.6 g/dL (2.2-4.2); Glucose 79 mg/dL (74-106); Lipase 71 U/L (73-393); Potassium 3.6 mmol/L (3.5-5.1); Protein, Total 7.1 g/dL (6.4-8.2); Sodium Level 142 mmol/L (136-145)
[2020-06-04 16:19] VITALS: BP 128/75; PULSE 71; RESP 17; O2SAT 98
== END 2020-06-04 16:20 | disposition home or self-care (01) ==
LOC: ED 14:38
PROVIDERS: Emergency Provider Emergency Medicine; PCP Nurse Practitioner Primary Care
DX: R10.31 Right lower quadrant pain (principal); R10.32 Left lower quadrant pain; R93.3 Abnormal findings on diagnostic imaging of other parts of digestive tract; Z90.710 Acquired absence of both cervix and uterus; Z87.891 Personal history of nicotine dependence
CPT/HCPCS: 74176; 80053; 81001; 83690; 85025; 87086; 96361; 96374; 96375; 99283; J7030; A4216; J2405

== ENCOUNTER → 2021-02-13 | Outpatient (CLI) | payer OTHER, SELFPAY ==
[2021-02-13 17:37] LABS: Bacteria 0 SEEN /hpf (None Seen); Mucous, Urine 0 SEEN /hpf (<or=2+); Red Blood Cells-Urine 0 SEEN /hpf (0-5); White Blood Cells 0 SEEN /hpf (0-5)
[2021-02-13 17:50] LABS: Color, Urine Yellow (Yellow); Glucose, Dipstick Normal (Normal); Ketone-Dipstick Negative (Negative); Leukocyte Esterase-Dipstick Negative /ul (Negative); Nitrite-Dipstick Negative (Negative); Occult Blood-Urine 25 /ul (Negative); Protein-Dipstick Negative (Negative); Urine Bilirubin Dipstick Negative (Negative); Urine Clarity Clear (Clear); Urine Urobilinogen Normal (Normal)
[2021-02-13 18:34] LABS: Squamous Epithelial Cells - UA 0-5 SEEN /hpf (5-10)
== END | disposition home or self-care (01) ==
LOC: LABSPEC 17:05
PROVIDERS: PCP Nurse Practitioner Primary Care; Visit Provider Nurse Practitioner Adult Health
DX: R31.29 Other microscopic hematuria (principal)
CPT/HCPCS: 81001

== ENCOUNTER → 2022-02-14 | Outpatient (CLI) | payer OTHER, SELFPAY ==
[2022-02-14 11:01] LABS: Absolute Lymphocyte Count 1.49 X10^3/uL (0.83-4.51); Absolute Neutrophil Count 4.1 X10^3/uL (2.0-7.7); Basophil# 0.05 X10^3/uL; Basophil% 0.7 % (0-1); Eosinophil# 0.32 X10^3/uL; Eosinophils% 4.8 % (0-5); Hematocrit 39.5 % (37-47); Hemoglobin 13.1 g/dL (12.0-15.0); Lymphocyte # 1.49 X10^3/ul (0.83-4.51); Lymphocyte % 22.2 % (19-41); Mean Corp Hgb Conc 33.2 g/dL (32-36); Mean Corpuscular Hgb 33.8 pg (27.0-32.0); Mean Corpuscular Volume 101.8 fL (81-99); Mean Platelet Vol. 9.3 fl (6.2-12.0); Monocyte# 0.68 X10^3/uL; Monocyte% 10.1 % (0-10); NRBC Flagged by Analyzer 0 % (0-5); Neutrophil # 4.11 X10^3/uL (2.7-7.7); Neutrophil % 61.2 % (47-70); Platelet Count 336 K/mm3 (150-450); RBC Distribution Width CV 12.8 % (11.6-14.6); RBC Distribution Width SD 47.8 fl (35.1-43.9); Red Blood Count 3.88 M/mm3 (4.2-5.4); White Blood Count 6.7 K/mm3 (4.4-11.0)
[2022-02-21 06:08] LABS: Immunoglobulin A 121 mg/dL (87-352); Immunoglobulin G 910 mg/dL (586-1602); Immunoglobulin M 67 mg/dL (26-217)
[2022-02-21 08:42] LABS: Immunoglobulin E 11 IU/mL (6-495)
== END | disposition home or self-care (01) ==
LOC: LAB 10:33
PROVIDERS: PCP Nurse Practitioner Primary Care; Referring Provider Internal Medicine Pulmonary Disease; Visit Provider Internal Medicine Pulmonary Disease
DX: J45.901 Unspecified asthma with (acute) exacerbation (principal); J30.9 Allergic rhinitis, unspecified
CPT/HCPCS: 36415; 82784; 82785; 85025

== ENCOUNTER → 2022-03-15 | Outpatient (CLI) | payer OTHER, SELFPAY ==
[2022-03-15 10:59] LABS: Erythrocyte Sedimentation Rate 6 mm/hr (0-30)
[2022-03-15 11:00] LABS: Absolute Lymphocyte Count 1.32 X10^3/uL (0.83-4.51); Absolute Neutrophil Count 3.5 X10^3/uL (2.0-7.7); Basophil# 0.04 X10^3/uL; Basophil% 0.7 % (0-1); Eosinophil# 0.29 X10^3/uL; Eosinophils% 5.1 % (0-5); Hematocrit 39.7 % (37-47); Hemoglobin 13.1 g/dL (12.0-15.0); Lymphocyte # 1.32 X10^3/ul (0.83-4.51); Lymphocyte % 23.2 % (19-41); Mean Corpuscular Hgb 33.2 pg (27.0-32.0); Mean Corpuscular Volume 100.8 fL (81-99); Mean Platelet Vol. 9.3 fl (6.2-12.0); Monocyte# 0.53 X10^3/uL; Monocyte% 9.3 % (0-10); NRBC Flagged by Analyzer 0 % (0-5); Neutrophil % 61.3 % (47-70); Platelet Count 353 K/mm3 (150-450); RBC Distribution Width CV 12.8 % (11.6-14.6); RBC Distribution Width SD 47.9 fl (35.1-43.9); Red Blood Count 3.94 M/mm3 (4.2-5.4); White Blood Count 5.7 K/mm3 (4.4-11.0)
[2022-03-15 11:25] LABS: AST(SGOT) 23 U/L (15-37); Alanine Aminotransfer ALT/SGPT 35 U/L (13-56); Albumin, Serum 3.5 g/dL (3.2-5.0); Alkaline Phosphatase 92 U/L (45-117); CRP 3.06 mg/L (0.0-3.0); Globulin 3.3 g/dL (2.2-4.2); Protein, Total 6.8 g/dL (6.4-8.2); Rheumatoid Factor < 10.0 IU/mL (<15)
[2022-03-16 12:08] LABS: Anti-Scleroderma-70 AB <0.2 AI (0.0-0.9); SJOGREN'S Anti-SS-A test 0.2 AI (0.0-0.9); SJOGREN'S Anti-SS-B test < 0.2 AI (0.0-0.9)
[2022-03-16 13:06] LABS: ANTINUCLEAR ANTIBODIES DIRECT Positive (Negative); Anti-dsDNA Ab 1 IU/mL (0-9)
[2022-03-20 04:07] LABS: Angiotensin Convert Enzyme 47 U/L (14-82); Cytoplasmic Ab (C-ANCA) <1:20 titer (Neg:<1:20)
[2022-03-20 07:55] LABS: Anti-Smooth Muscle ABS 5 Units (0-19); CCP IgG Antibodies 6 units (0-19); Perinuclear Ab (P-ANCA) <1:20 titer (Neg:<1:20)
== END | disposition home or self-care (01) ==
PROVIDERS: PCP Nurse Practitioner Primary Care; Referring Provider Internal Medicine Pulmonary Disease; Visit Provider Internal Medicine Pulmonary Disease
DX: J45.50 Severe persistent asthma, uncomplicated (principal); R22.2 Localized swelling, mass and lump, trunk
CPT/HCPCS: 36415; 80076; 82164; 83516; 85025; 85652; 86038; 86140; 86200; 86225; 86235; 86256; 86431

== ENCOUNTER → 2023-01-09 | Outpatient (CLI) | payer OTHER, SELFPAY | END | disposition home or self-care (01) | LOC: LABSPEC 11:06 | PROVIDERS: PCP Nurse Practitioner Primary Care; Referring Provider Internal Medicine Pulmonary Disease; Visit Provider Internal Medicine Pulmonary Disease | DX: R05.9 Cough, unspecified (principal); R06.02 Shortness of breath | CPT/HCPCS: 87070; 87205 ==

== ENCOUNTER → 2023-08-28 | Outpatient (CLI) | payer OTHER, SELFPAY | END | disposition home or self-care (01) | LOC: LABSPEC 15:24 | PROVIDERS: PCP Nurse Practitioner Primary Care; Referring Provider Internal Medicine Pulmonary Disease; Visit Provider Internal Medicine Pulmonary Disease | DX: R05.9 Cough, unspecified (principal) | CPT/HCPCS: 87070; 87077; 87186; 87205 ==

== ENCOUNTER → 2023-09-11 | Outpatient (CLI) | payer OTHER, SELFPAY ==
--- NOTE | 2023-09-11 10:38 | RAD_ITS ---
EXAM: XR CHEST, 2 VIEWS CLINICAL INDICATION: SOB TECHNIQUE: Frontal and lateral views of the chest. COMPARISON: No relevant prior studies available. FINDINGS: LUNGS AND PLEURAL SPACES: Unremarkable. No consolidation or edema. No pneumothorax. No effusion. HEART: Unremarkable. Cardiac silhouette not enlarged. MEDIASTINUM: Central airways and mediastinal contour are unremarkable. BONES/JOINTS: Unremarkable. No acute fracture. SOFT TISSUES: There are bilateral nipple piercings. RAD/Chest PA and Lateral IMPRESSION: No acute findings in the chest. Electronically Signed: Petr Gordon MD at 23:54 EST ,
[2023-09-11 11:10] LABS: Absolute Lymphocyte Count 2.52 X10^3/uL (0.83-4.51); Absolute Neutrophil Count 6.2 X10^3/uL (2.0-7.7); Basophil# 0.08 X10^3/uL; Basophil% 0.8 % (0-1); Hematocrit 42.4 % (37-47); Hemoglobin 13.9 g/dL (12.0-15.0); Lymphocyte # 2.52 X10^3/ul (0.83-4.51); Lymphocyte % 25.4 % (19-41); Mean Corp Hgb Conc 32.8 g/dL (32-36); Mean Corpuscular Hgb 33.7 pg (27.0-32.0); Mean Corpuscular Volume 102.9 fL (81-99); Mean Platelet Vol. 9.1 fl (6.2-12.0); Monocyte# 0.75 X10^3/uL; Monocyte% 7.6 % (0-10); NRBC Flagged by Analyzer 0 % (0-5); Neutrophil # 6.19 X10^3/uL (2.7-7.7); Neutrophil % 62.3 % (47-70); Platelet Count 399 K/mm3 (150-450); RBC Distribution Width SD 49.5 fl (35.1-43.9); Red Blood Count 4.12 M/mm3 (4.2-5.4); White Blood Count 9.9 K/mm3 (4.4-11.0)
[2023-09-11 11:13] LABS: Erythrocyte Sedimentation Rate < 1 mm/hr (0-30)
[2023-09-11 11:26] LABS: CRP 4.32 mg/L (0.0-3.0)
[2023-09-12 15:08] LABS: Angiotensin Convert Enzyme 60 U/L (14-82)
== END | disposition home or self-care (01) ==
LOC: LAB 10:27
PROVIDERS: PCP Nurse Practitioner Primary Care; Referring Provider Internal Medicine Pulmonary Disease; Visit Provider Internal Medicine Pulmonary Disease
DX: R06.02 Shortness of breath (principal)
CPT/HCPCS: 36415; 71046; 82164; 85025; 85652; 86140

== ENCOUNTER → 2023-09-27 | Outpatient (CLI) | payer OTHER, SELFPAY | END | disposition home or self-care (01) | LOC: LABSPEC 13:29 | PROVIDERS: PCP Nurse Practitioner Primary Care; Referring Provider Internal Medicine Pulmonary Disease; Visit Provider Internal Medicine Pulmonary Disease | DX: J01.00 Acute maxillary sinusitis, unspecified (principal) | CPT/HCPCS: 87070; 87077; 87186; 87205 ==

== ENCOUNTER → 2024-10-26 | Outpatient (CLI) | payer OTHER, SELFPAY ==
--- NOTE | 2024-10-26 09:36 | MRI_ITS ---
PROCEDURE: SPINE CERVICAL (ROUTINE) REASON FOR EXAM: Neck pain. Headaches. TECHNIQUE: Noncontrast cervical spine MRI. COMPARISON: None. FINDINGS: Cervical vertebral bodies maintain a normal height and alignment. Intervertebral disc spacing is preserved. No acute fracture or subluxation is present. Cervical spinal cord demonstrates a normal signal intensity and morphology. Cerebellar tonsils are within normal range. Individual levels: C2-3: No disc herniation, central canal stenosis, or neural foraminal narrowing. Facet arthropathy is present. C3-4: No disc herniation, central canal stenosis, or neural foraminal narrowing. Facet arthropathy is present. C4-5: Mild disc osteophyte complex results in mild flattening of the ventral thecal sac with no significant central canal stenosis or neural foraminal narrowing. Facet arthropathy is present. C5-6: Mild disc osteophyte complex with no significant central canal stenosis or neural foraminal narrowing. Facet arthropathy is present. C6-7: Mild disc osteophyte complex with no significant central canal stenosis or neural foraminal narrowing. Facet arthropathy is present. C7-T1: No disc herniation, central canal stenosis, or neural foraminal narrowing. Facet arthropathy is present. MRI/Spine Cervical (Routine) IMPRESSION: 1. Multilevel degenerative disc disease and spondylosis with no significant jaison tral canal stenosis or neural foraminal narrowing. 2. No abnormal cord signal. Reading Location: [facility]
== END | disposition home or self-care (01) ==
PROVIDERS: PCP Nurse Practitioner Primary Care; Referring Provider Orthopaedic Surgery Orthopaedic Surgery of the Spine; Visit Provider Orthopaedic Surgery Orthopaedic Surgery of the Spine
DX: G95.9 Disease of spinal cord, unspecified (principal)
CPT/HCPCS: 72141

== ENCOUNTER 2024-10-27 10:00 | Outpatient (RCR) | payer OTHER, SELFPAY ==
--- NOTE | 2024-10-12 13:02 | HP.PTEVAL_ITS ---
Patient's Visit Information Visit Information Visit Information: LATIA STOCKTON is a 53 year old F referred to Physical Therapy by Dr. Osiel Ji MD with a diagnosis of SPONDYLOLISTHESIS ,LUMBAR. Date of Evaluation: 10/12/24 Physical Therapist: Rasheed Henderson, PT, Cert MDT, OCS Visit Plan Frequency: 2x /Week Duration: 4 Weeks Plan: PT INTERVENTIONS DLS ,POSTURAL EX'S ,LE FLEXABILITY ,ACTIVITY MODIFICATION AND MODALITIES Subjective Subjective: This 53 y/o female presents to physical therapy with lumbar radiculopathy. Patient has had lumbar radiculopathy for many years with legs symptoms ~ 2 years and legs giving way. Patient seen DR Ji Received MRI showed Imaging shows a spondylolisthesis of L4-5 with dynamic instability and multilevel disc height loss. Significant L4-5 stenosis noticed especially foraminal worse than left. Patient has seen DR Delgado for injection pain management which did not help. Medication meloxicam which patient has stopped. Patient location lumbar anterior thigh and lateral aspect to knees. Patient legs give way due to weakness. Patient gets paresthesia/tingling with extended walking. Aggravating factors walking,standing bending ,rest,.lifting. Alleviating factors rest. Coughing/sneezing -. Bowel/bladder. Patient has tried no PT. Patient plans to have MRI in neck as well ,due to balance and dropping things.Patient has tried PT in past. Patient condition affects QOL and function SOCIAL: VOCATION: home Pain Bilateral Back: Pain Intensity (Out of 10): 8 Pain Intensity Range: 10 Bilateral Lower Extremity: Pain Intensity (Out of 10): 3 Pain Intensity Range: 10 Objective Objective: POSTURE: mild forward posture GAIT: antalgic gait slow bindu NEURO: denies paresthesia/tingling ,reflexes L3-4,L4-5,L5-S1 1/3 FLEXABILITY: hamstrings WFL MMT: quads/hams 4/5 ,hip flexion 4-5 ,ankle 4/5 LUMBAR ROM: flexion mod loss ,extension mod loss ,side lides min/mod loss Special Tests L/S Slump test left side: Negative L/S Slump test right side: Negative L/S Left Straight Leg Raise: Negative L/S Right Straight Leg Raise: Negative Lumbar Standing: Flexion - Mechanical Response: No effect Lumbar Standing: Flexion - Symptoms During Testing: Increases Lumbar Standing: Flexion - Symptoms After Testing: Worse Lumbar Standing: Extension - Mechanical Response: No effect Lumbar Standing: Extension - Symptoms During Testing: No effect Lumbar Standing: Extension - Symptoms After Testing: Worse Lumbar Standing: Right Side Glides - Mechanical Response: No effect Lumbar Standing: Right Side [place] - Symptoms During Testing: Increases Lumbar Standing: Right Side [place] - Symptoms After Testing: No effect Lumbar Standing: Left Side [place] - Symptoms During Testing: Increases Lumbar Standing: Left Side [place] - Symptoms After Testing: Worse Lumbar Lying: Flexion - Mechanical Response: No effect Lumbar Lying: Flexion - Symptoms During Testing: Increases Lumbar Lying: Flexion - Symptoms After Testing: Worse Balance/Special Test Scores Oswestry Low Back Score: 31 Goals Goal 1:: Patient to be I with HEP for back Goal Time Frame: 4-6 Weeks Goal 2:: Patient to improve lumbar ROM for function of recovery for ADLS Goal Time Frame: 4-6 Weeks Goal 3:: Patient be able to walk and stand with less pain to improve function and housework tasks by 10-15 mins Goal Time Frame: 4-6 Weeks Goal 4:: Patient to improve back oswestry score by 5 points to improve function Goal Time Frame: 4-6 Weeks Goal 5:: Patient to demonstrate 50% to decrease pain and improve function Goal Time Frame: 4-6 Weeks Rehabilitation Potential Physical Therapy Diagnosis: This patient has unstable spondylolisthesis with pain with motion and positioning with weakness in legs worse with walking/standing ,bending thus benfit from skilled Rehabilitation Potential: Good Anticipated Interventions Patient/Client Instruction: Educate patient on: Condition and Plan of Care For the Purpose of:: To decrease pain, To improve nutrient delivery to tissue, To improve muscle performance and motor function, To improve ability to perform ADL's, To increase tolerance to activity/condition/position, To improve ability of physical actions for home/community/work/leisure, To improve health of tissue, To decrease soft tissue restriction, To increase flexibility/ROM and To reduce risk of recurrence Therapeutic Exercise to Include: Strength training, Body mechanics, Postural training, Flexibilty training and Dynamic Lumbar Stabilization For the Purpose of:: To decrease pain, To increase ROM, To improve muscle perfo rmance and motor function, To improve ability to perform ADL's, To increase tolerance to activity/condition/position, To improve ability of physical actions for home/community/work/leisure, To improve gait and locomotor functions, To increase flexibility/ROM, To improve endurance, To improve balance and To improve tolerance to ADL's TENS: Yes IF ES: Yes Cryotherapy (ice pack, ice massage): Yes Thermo therapy (hot pack): Yes Ultrasound (thermal/non thermal): Yes For the Purpose of:: To decrease pain, To increase ROM, To improve nutrient delivery to tissue, To increase oxygenation perfusion, To improve health of tissue, To decrease soft tissue restriction and To increase flexibility/ROM Text: Thank you for the opportunity to evaluate your patient. For Medicare and Medicare HMO plans, please review the plan of care and approve it. It will need to be FAXED BACK to us at [phone] for Medicare purposes. For Medicare only, by signing this I certify the plan of care. Please let me know if there are questions or concerns regarding this plan of care. Physician Signature: Date:
--- NOTE | 2025-01-28 14:40 | HP.PT.NRP ---
Patient Information Patient Information: LATIA STOCKTON was seen in my office for initial evaluation on 10/12/24. The following Plan of Care was established for this patient: POC Established Initial Frequency: 2x /Week Initial Duration: 4 Weeks Anticipated Interventions Patient/Client Instruction: Educate patient on: Condition and Plan of Care For the Purpose of:: To decrease pain, To improve nutrient delivery to tissue, To improve muscle performance and motor function, To improve ability to perform ADL's, To increase tolerance to activity/condition/position, To improve ability of physical actions for home/community/work/leisure, To improve health of tissue, To decrease soft tissue restriction, To increase flexibility/ROM and To reduce risk of recurrence Therapeutic Exercise to Include: Strength training, Body mechanics, Postural training, Flexibilty training and Dynamic Lumbar Stabilization For the Purpose of:: To decrease pain, To increase ROM, To improve muscle performance and motor function, To improve ability to perform ADL's, To increase tolerance to activity/condition/position, To improve ability of physical actions for home/community/work/leisure, To improve gait and locomotor functions, To increase flexibility/ROM, To improve endurance, To improve balance and To improve tolerance to ADL's TENS: Yes IF ES: Yes Cryotherapy (ice pack, ice massage): Yes Thermo therapy (hot pack): Yes Ultrasound (thermal/non thermal): Yes For the Purpose of:: To decrease pain, To increase ROM, To improve nutrient delivery to tissue, To increase oxygenation perfusion, To improve health of tissue, To decrease soft tissue restriction and To increase flexibility/ROM Last Seen Last Seen: This patient was last seen in our office . Pertinent comments regarding their Physical therapy will appear below: Patient was seen for PT for lumbar pain spondylolisthesis for HEP At this point I will be discontinuing this patient from physical therapy. I would be happy to see this patient again in the future if found appropriate by the physician. Thank you! Rasheed Henderson, PT, Cert MDT, OCS Balance/Gait/Functional tests Balance/Special Test Scores Oswestry Low Back Score: 31
== END 2024-10-27 19:00 | disposition home or self-care (01) ==
LOC: PT 10:00
PROVIDERS: PCP Nurse Practitioner Primary Care; Referring Provider Orthopaedic Surgery Orthopaedic Surgery of the Spine; Visit Provider Orthopaedic Surgery Orthopaedic Surgery of the Spine
DX: M43.16 Spondylolisthesis, lumbar region (principal)
CPT/HCPCS: 97014; 97110; 97162; G0283

== ENCOUNTER 2024-10-31 12:04 | Emergency (ER) | payer OTHER, SELFPAY ==
[2024-10-31 12:05] VITALS: BP 134/83; PULSE 77; RESP 16; TEMP 36.9; O2SAT 100; BMI 34.9
--- NOTE | 2024-10-31 12:18 | EX.ED.UPPERE ---
HPI <PADMA De La O - Last Filed: 10/31/24 14:45> History of Present Illness Chief Complaint: Upper Extremity Injury Narrative Narrative: Patient presenting today with pain in her right hand after an injury occurred last night. She was wearing her crocs outside and slipped on the ice and try to catch herself with her right hand but fell on top of it. She is right-handed. She denies any other injury. [facility] <PADMA De La O - Last Filed: 10/31/24 14:45> [facility] Medical History Hypertension Asthma Implantable loop recorder present Home Medications ?Medication ?Instructions ?Recorded ?Last Taken ?Type Famciclovir [Famvir] 500 mg PO BID PRN COLD SORES 04/28/20 Unknown History albuterol sulfate 90 mcg/actuation 2 puff inhalation Q6H PRN PRN 04/28/20 05/09/20 06:45 History aerosol inhaler Asthma amitriptyline 25 mg tablet 25 mg PO PRN PRN Sleep 04/28/20 Unknown History bupropion HCl 150 mg 24 hr tablet, 150 mg PO DAILY 04/28/20 Unknown History extended release bupropion HCl 300 mg 24 hr tablet, 300 mg PO DAILY 04/28/20 05/09/20 06:45 History extended release diltiazem HCl 360 mg 360 mg PO DAILY 04/28/20 Unknown History tablet,extended release 24 hr epinephrine 0.3 mg/0.3 mL 0.3 mg IM X1 04/28/20 Unknown History injection, auto-injector fexofenadine 60 mg tablet 60 mg PO DAILY 04/28/20 Unknown History fluticasone 500 mcg-salmeterol 50 1 ea IH BID 04/28/20 05/09/20 06:45 History mcg/dose blistr powdr for inhalation topiramate 200 mg tablet 200 mg PO BID 04/28/20 05/09/20 06:45 History candesartan 16 mg tablet 16 mg PO QDAY 09/11/24 Unknown History famotidine 20 mg tablet 20 mg PO QDAY 09/11/24 Unknown History oxycodone 5 mg tablet 5 mg PO Q6H PRN pain 3 days #10 10/31/24 Unknown Rx tabs Allergy/AdvReac Type Severity Reaction Status Date / Time azithromycin (From Zithromax) Allergy Mild Rash Verified 10/31/24 12:07 esomeprazole (From Nexium) Allergy Mild Rash Verified 10/31/24 12:07 gluten Allergy Mild Abd Verified 10/31/24 12:07 cramps/diarrhea codeine Allergy Anaphylaxis Verified 10/31/24 12:07 Penicillins (PCN) Allergy Rash Verified 10/31/24 12:07 Sulfa (Sulfonamide Allergy Vomiting Verified 10/31/24 12:07 Antibiotics) Surgical History S/P hernia repair S/P laparoscopic hysterectomy History of repair of hiatal hernia Social History Smoking Status: Former smoker ROS <PADMA De La O - Last Filed: 10/31/24 14:45> ROS ED Constitutional Constitutional ED: Denies chills or fever(s) Cardiovascular Cardiovascular: Denies chest pain Respiratory/Chest Respiratory/Chest: Denies dyspnea Gastrointestinal Gastrointestinal: Denies abdominal pain, nausea or vomiting Musculoskeletal Musculoskeletal: Reports arthralgias Integumentary Denies Abrasions Neurologic Neurologic: Denies paresthesias EXAM <PADMA De La O - Last Filed: 10/31/24 14:45> Physical Exam Const Vital Signs: 10/31/24 12:05 Temperature 98.4 F Temperature Source Oral Pulse Rate 77 Respiratory Rate 16 Blood Pressure 134/83 H Blood Pressure Mean 100 Pulse Ox 100 Oxygen Delivery Method Room Air Positive well nourished, well developed and no apparent distress General Appearance ED: well developed HEENT Reports normocephalic and head/scalp atraumatic Mouth ED: Yes moist mucous membranes normal Eyes PERRL and EOMs intact bilaterally Neck full ROM and supple Chest Wall inspection of chest normal Resp normal respiratory effort and clear to auscultation bilaterally Cardio regular rate and regular rhythm Back/Spine normal ROM and normal to inspection Extremity Extremity Narrative: Swelling, pain, and bruising to the right fourth and fifth metacarpals, patient is able to flex and extend all 5 fingers at the MCP, PIP, and DIP joints. Right radial pulse 2+, good cap refill, sensation intact. Full range of motion of the right wrist. Neuro oriented x3, CN's II-XII intact bilaterally, moves all extremities, no focal motor deficits and no sensory deficits noted Sensorium / Orientation: awake and alert Psych mental status grossly normal and thought process normal Skin no rashes or lesions noted and no wounds MDM <PADMA De La O - Last Filed: 10/31/24 14:45> [facility] Narrative Medical decision making narrative: Patient presenting today with pain to the right hand near the right fourth and fifth metacarpals. She does have overlying swelling and bruising to this area. She is neurovascularly intact. Examination is concerning for a fracture, x-ray was obtained and shows a fracture to the neck of the fifth metacarpal. She was placed in a right ulnar gutter Ortho-Glass splint. Good capillary refill post splinting. She was given a prescription for oxycodone for pain, she can alternate Tylenol and ibuprofen as needed. She has seen [facility] in the past, she was given a referral for them, RICE instructions discussed and patient discharged home in stable condition. <Brandt Velásquez MD - Last Filed: 10/31/24 16:30> [facility] Treatment and Re-Evaluation Narrative: Dr. Velásquez: I have personally performed a face to face assessment of the patient and have reviewed the KRYSTLE Note. I performed a substantive portion of the visit including all aspects of the following. My chavarria findings include: History is fall yesterday on outside stairs. Fell onto right hand. Pain and swelling base of right fifth digit. No hitting of head, no loss of consciousness, denies other injury. Fmbyd-ltat-avhleyol. Exam is GCS 15. ABCs intact. Focused examination shows tenderness and swelling/bony tenderness right distal metacarpal, fifth digit. Good capillary refill. Uninjured at wrist and above. Palpable radial pulse. No crepitance. Mild ecchymosis and swelling at base of fifth digit right hand. Medical Decision Making: Check x-rays. X-rays interpreted by myself independently do show a distal fifth metacarpal fracture. Patient will be placed in an ulnar gutter splint and given analgesics. She has followed up with [facility] in the past. Splint applied by KRYSTLE. Disposition is discharged in stable condition. Other additions or changes: [None] Procedures <PADMA De La O - Last Filed: 10/31/24 14:45> Upper Extremity Splints Upper Extremity Splint: Orthoglass, Ulnar gutter and - Splint Fabrication: Pre-fabricated Location: Right Discharge Plan Triage Chief Complaint: Upper Extremity Injury ED Midlevel Provider: Adilia Martin ED Provider: Brandt Velásquez Dx/Rx/DC Orders Clinical Impression: Right hand fracture Instructions: ED Fracture, Upper Extremity Prescriptions: New oxycodone 5 mg tablet 5 mg PO Q6H PRN (Reason: pain) 3 Days Qty: 10 0RF No Action famotidine 20 mg tablet 20 mg PO QDAY candesartan 16 mg tablet 16 mg PO QDAY fexofenadine 60 MG tablet 60 mg PO DAILY amitriptyline 25 MG tablet 25 mg PO PRN PRN (Reason: Sleep) fluticasone propion-salmeterol 1 EACH blister with device 1 ea IH BID epinephrine 0.3 MG syringe 0.3 mg IM X1 albuterol sulfate 1 INHALER inhaler 2 puff inhalation Q6H PRN PRN (Reason: Asthma) diltiazem HCl 360 MG tablet extended release 24 hr 360 mg PO DAILY bupropion HCl 300 MG tablet extended release 24 hr 300 mg PO DAILY bupropion HCl 150 MG tablet extended release 24 hr 150 mg PO DAILY Famciclovir [Famvir] 500 MG tablet 500 mg PO BID PRN (Reason: COLD SORES) topiramate 200 MG tablet 200 mg PO BID Primary Care Provider: Dayana Romano NP Referrals: Vicente Pandya DO [Med Staff - Active Staff] - Dayana Romano COBOL PROGRAMMER, COBOL PROGRAMMER-C [Primary Care Provider] - Activity Restrictions/Additional Instructions: Follow-up with orthopedics. Print Language: Bahamian Disposition Disposition: Home, Self Care Discharge Date/Time: 10/31/24 13:16
--- NOTE | 2024-10-31 12:25 | RAD_ITS ---
PROCEDURE: HAND MIN 3 VIEWS REASON FOR EXAM: Trauma TECHNIQUE: Three views right hand COMPARISON: None. FINDINGS: Minimally displaced 5th metacarpal neck fracture distally without intra- articular extension. Regional soft tissue swelling. Remaining osseous structures are appear intact. RAD/Hand Min 3 Views IMPRESSION: As above. [facility]
[2024-10-31] MEDS: Acetaminophen 500 MG Tablet 1000 MG PO (12:41)
== END 2024-10-31 13:16 | disposition home or self-care (01) ==
PROVIDERS: Emergency Provider Emergency Medicine; PCP Nurse Practitioner Primary Care; Visit Provider Emergency Medicine
DX: S62.336A Displaced fracture of neck of fifth metacarpal bone, right hand, initial encounter for closed fracture (principal); Z87.891 Personal history of nicotine dependence; I10 Essential (primary) hypertension; Z90.710 Acquired absence of both cervix and uterus; W00.0XXA Fall on same level due to ice and snow, initial encounter; Y92.89 Other specified places as the place of occurrence of the external cause; Z79.899 Other long term (current) drug therapy
CPT/HCPCS: 29125; 73130; 99282

== ENCOUNTER → 2024-11-19 | Outpatient (CLI) | payer OTHER, SELFPAY ==
[2024-11-19 11:47] LABS: Absolute Lymphocyte Count 1.85 X10^3/uL (0.83-4.51); Absolute Neutrophil Count 5.5 X10^3/uL (2.0-7.7); Basophil# 0.08 X10^3/uL; Eosinophil# 0.33 X10^3/uL; Eosinophils% 3.9 % (0-5); Hematocrit 36.1 % (37-47); Hemoglobin 11.6 g/dL (12.0-15.0); Lymphocyte # 1.85 X10^3/ul (0.83-4.51); Lymphocyte % 22.1 % (19-41); Mean Corp Hgb Conc 32.1 g/dL (32-36); Mean Corpuscular Hgb 29.6 pg (27.0-32.0); Mean Corpuscular Volume 92.1 fL (81-99); Mean Platelet Vol. 9.1 fl (6.2-12.0); Monocyte# 0.56 X10^3/uL; Monocyte% 6.7 % (0-10); NRBC Flagged by Analyzer 0 % (0-5); Neutrophil % 65.6 % (47-70); Platelet Count 473 K/mm3 (150-450); RBC Distribution Width CV 14.2 % (11.6-14.6); RBC Distribution Width SD 47.8 fl (35.1-43.9); Red Blood Count 3.92 M/mm3 (4.2-5.4); White Blood Count 8.4 K/mm3 (4.4-11.0)
[2024-11-21 10:08] LABS: HOMOCYSTEINE 9.8 umol/L (0.0-14.5)
== END | disposition home or self-care (01) ==
LOC: LAB 11:26
PROVIDERS: PCP Nurse Practitioner Primary Care
DX: Z00.00 Encounter for general adult medical examination without abnormal findings (principal); E53.8 Deficiency of other specified B group vitamins; E72.11 Homocystinuria; Z86.73 Personal history of transient ischemic attack (TIA), and cerebral infarction without residual deficits; Z80.9 Family history of malignant neoplasm, unspecified; D68.9 Coagulation defect, unspecified
CPT/HCPCS: 36415; 82746; 83090; 85025

== ENCOUNTER 2025-08-04 12:22 | Inpatient (IN) | payer OTHER, SELFPAY ==
--- NOTE | 2025-07-21 15:54 | PAT.ANESEVAL ---
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 When Was Last Pacemaker Check QUESTION #4 FULL TEXT: You/Your Family Experience fever (hyperthermia) with Anesthesia Last Oral Intake Last Oral intake: Last Oral Intake NPO since Meds taken in AM with sips of water? Meds patient instructed to take am of surgery PONV PONV - quantitative software engineer: PONV - quantitative software engineer Female Yes 07/21/25 13:37 HX of Motion Sickness Yes 07/21/25 13:37 HX of N/V After Surgery No 07/21/25 13:37 Non-Smoker Yes 07/21/25 13:37 Duration of Surgery greater Yes 07/21/25 13:37 than 60 minutes Number of Risk Factors 4 07/21/25 13:37 PONV Score Severe Risk 07/21/25 13:37 Height & Weight Height & Weight: Anesthesia: Height & Weight Height 5 ft 6 in 04/15/25 13:37 Respiratory Assessment Respiratory Assessment - quantitative software engineer: Respiratory Tract Infection Hx - quantitative software engineer Hx Respiratory Tract Infection No 07/21/25 13:37 STOP Sleep Apnea STOP Sleep Apnea - quantitative software engineer: STOP Sleep Apnea - quantitative software engineer Hx Hypertension Yes: CONTROLLED WITH MED 07/21/25 13:37 Hx Sleep Apnea No 07/21/25 13:37 CPAP BIPAP Do you snore loudly (louder Yes 07/21/25 13:37 than talking or can be heard Do you often feel tired/ No 07/21/25 13:37 fatigued/ sleepy during daytime? Has anyone observed you stop No 07/21/25 13:37 breathing during sleep? STOP Results Positive 07/21/25 13:37 QUESTION #5 FULL TEXT : Do you snore loudly (louder than talking or can be heard through closed doors)? 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 Specify any problems Hx of Preganancy in last 3 No 07/21/25 13:37 Months Nurse Filling Out Transfusion DSCHRIBER 07/21/25 13:37 & Questions: Date: 07/21/25 07/21/25 13:37 Time: 13:40 07/21/25 13:37 Patient unable to answer at this time (ie. confused, unrespo /Reproduction History /Reproductive History - quantitative software engineer: /Reproductive Hx- quantitative software engineer Hx Now No 07/21/25 13:37 Gestational Age (in weeks): EDC: Hx Hx Para Hx Section SAB No 07/21/25 13:37 PFSH Medical History (Updated 07/21/25 @ 15:06 by Shilpi Ingram) Loss of hearing Wears glasses Wears partial dentures Depression Anxiety Alcohol use Psoriasis Thyroid disease Arthritis Easy bruising Back pain Injury of head and neck Stroke Syncope Migraine headache Dietary restriction History of diverticulitis History of IBS Gastric reflux Shortness of breath on exertion Former smoker History of pain when walking History of edema History of echocardiogram History of stress test Cardiology follow-up encounter History of irregular heartbeat Hx of lipoma Lumbar stenosis Hypertension Asthma Implantable loop recorder present Home Medications Medication Instructions Recorded Last Taken Type albuterol sulfate 90 mcg/actuation 2 puff inhalation Q6H PRN PRN 04/28/20 05/09/20 06:45 History aerosol inhaler Asthma amitriptyline 25 mg tablet 25 mg PO PRN PRN Sleep 04/28/20 Unknown History bupropion HCl 150 mg 24 hr tablet, 150 mg PO DAILY DEPRESSION 04/28/20 Unknown History extended release bupropion HCl 300 mg 24 hr tablet, 300 mg PO DAILY DEPRESSION 04/28/20 05/09/20 06:45 History extended release diltiazem HCl 360 mg 360 mg PO QHS HEART 04/28/20 Unknown History tablet,extended release 24 hr epinephrine 0.3 mg/0.3 mL 0.3 mg IM X1 ALLERGIC REACTION 04/28/20 Unknown History injection, auto-injector fexofenadine 60 mg tablet 60 mg PO DAILY ALLERGY 04/28/20 Unknown History topiramate 200 mg tablet 200 mg PO BID MIGRAINES 04/28/20 05/09/20 06:45 History candesartan 16 mg tablet 16 mg PO QDAY BP 09/11/24 Unknown History famotidine 20 mg tablet 20 mg PO BID GERD 09/11/24 Unknown History linaclotide 145 mcg capsule 145 mcg PO QAM PRN IBS 04/15/25 Unknown History (Linzess) albuterol sulfate 2.5 mg/3 mL 2.5 mg inhalation Q4H PRN wheezing 07/21/25 Unknown History (0.083 %) solution for nebulization budesonide 0.5 mg/2 mL suspension 0.5 mg inhalation Q12H PRN SOB 07/21/25 Unknown History for nebulization fluticasone furoate 100 1 ea inhalation DAILY ASTHMA 07/21/25 Unknown History mcg-vilanterol 25 mcg/dose inhalation powder (Breo Ellipta) folic acid 1 mg tablet 2 mg PO DAILY SUPPLEMENT 07/21/25 Unknown History hydroxyzine pamoate 25 mg capsule 25 mg PO Q8H PRN anxiety 07/21/25 Unknown History mecobalamin (vitamin B12) 1,000 1,000 mcg PO DAILY SUPPLEMENT 07/21/25 Unknown History mcg chewable tablet nystatin 100,000 unit/mL oral 1 ml PO DAILY PRN MOUTH SORE 07/21/25 Unknown History suspension pantoprazole 40 mg tablet,delayed 40 mg PO DAILY GERD 07/21/25 Unknown History release vitamins no.144-folic 2 tab PO DAILY SUPPLEMENT 07/21/25 Unknown History acid 400 mcg chewable tablet () pyridoxine (vitamin B6) 100 mg 100 mg PO DAILY SUPPLEMENT 07/21/25 Unknown History tablet rizatriptan 10 mg disintegrating 10 mg PO Q2H PRN migraine headache 07/21/25 Unknown History tablet valacyclovir 1 gram tablet 2,000 mg PO BID PRN cold sores 07/21/25 Unknown History Allergy/AdvReac Type Severity Reaction Status Date / Time azithromycin (From Zithromax) Allergy Mild Rash Verified 07/21/25 13:23 esomeprazole (From Nexium) Allergy Mild Rash Verified 07/21/25 13:23 gluten Allergy Mild Abd Verified 07/21/25 13:23 cramps/diarrhea codeine Allergy Anaphylaxis Verified 07/21/25 13:23 Penicillins (PCN) Allergy Rash Verified 07/21/25 13:23 Sulfa (Sulfonamide Allergy Vomiting Verified 07/21/25 13:23 Antibiotics) Surgical History (Updated 07/21/25 @ 13:50 by Shilpi Ingram) History of esophagogastroduodenoscopy (EGD) Hx of colonoscopy S/P laparoscopic hysterectomy History of repair of hiatal hernia Social History Smoking Status: Former smoker Audit: Pertinent Findings Pertinent Findings EKG Perinent findings: 07/15/2025 sinus rhythm 85 bpm. Consult pertinent findings: Cardiology. Electrophysiology. 07/15/2025. Sinus tachycardia. Currently on diltiazem 360 mg per 24 hours. No recent episodes of sinus tachycardia. Most recent loop recorder demonstrating no arrhythmias no pauses no atrial fibrillation. No changes. Hypertension well-controlled with medical therapy. From a cardiac standpoint patient is medically optimized for upcoming lumbar surgical procedure. Recommendation Anesthesia Recommendation Anesthesia recommendation: OPTIMIZED for anesthesia
[2025-07-22 12:34] LABS: Hematocrit 36.0 % (37-47); Hemoglobin 11.5 g/dL (12.0-15.0); Immature Granulocytes Count 0.030 X10^3/uL (0.0-0.0); Mean Corp Hgb Conc 31.9 g/dL (32-36); Mean Corpuscular Volume 89.8 fL (81-99); Mean Platelet Vol. 10.0 fl (6.2-12.0); NRBC Flagged by Analyzer 0 % (0-5); Platelet Count 449 K/mm3 (150-450); RBC Distribution Width CV 15.0 % (11.6-14.6); RBC Distribution Width SD 48.8 fl (35.1-43.9); Red Blood Count 4.01 M/mm3 (4.2-5.4); White Blood Count 7.0 K/mm3 (4.4-11.0)
[2025-07-22 12:44] LABS: Prothrombin Time (Protime)PT. 14.0 SECONDS (11.7-14.9)
[2025-07-22 12:45] LABS: Partial Thromboplast Time 25.6 Seconds (24.1-36.2)
[2025-07-22 13:11] LABS: Anion Gap 9 (5-15); BUN 13 mg/dL (4-19); BUN/Creat Ratio 14.3 RATIO (10-20); Calcium,Total 9.3 mg/dL (7.6-11.0); Carbon Dioxide 22.9 mmol/L (21.0-32.0); Chloride 109 mmol/L (98-108); Glucose 100 mg/dL (70-99); Potassium 3.7 mmol/L (3.3-5.1)
[2025-07-22 13:39] LABS: AST(SGOT) 24 U/L (<=31); Alanine Aminotransfer ALT/SGPT 22 U/L (<=34); Albumin, Serum 4.4 g/dL (3.5-5.0); Alkaline Phosphatase 92 U/L (35-104); Bilirubin, Direct 0.24 mg/dL (0.00-0.30); Globulin 2.7 g/dL (2.2-4.2); Magnesium 2.1 mg/dL (1.5-2.2)
[2025-08-04] VITALS (18 sets, daily range): BP systolic 105–131; BP diastolic 69–90; PULSE 64–88; RESP 14–18; TEMP 36.2–36.7; O2SAT 94–100; BMI 34.1
[2025-08-04] MEDS: Lactated Ringers 1,000 ML 15 ML IV (06:25)
[2025-08-04] MEDS: Magnesium 1 GM over 15 mins IV (06:30)
--- NOTE | 2025-08-04 07:02 | PRE.ANES_ITS ---
ASA Classification* ASA Classification ASA Classification: 3 (HTN, Mitral insuffiency, hx sinus tachycardia (on diltiazem), asthma, migraines, hx eye stroke, GERD) Assessment & Plan Anesthesia* Anesthesia Assessment Anesthesia Assessment: Discussed sedation and/or anesthesia options, risks, benefits, and alternatives with patient/parents/legal guardian/POA. Questions invited. The patient/parents/legal guardian/POA seems to understand and agrees to proceed with anesthesia plan. Reviewed the physical assessment, medical history, allergy history and patient home medications list prior to surgery/procedure/anesthetic and documented any changes. Performed airway and anesthesia risk assessments. Anesthesia Type Anesthesia Type: General (2 peripheral IVs, arterial line for BP monitoring ) History Source History Obtained from:: Patient and Chart Anesthesia Focused Assessment* Temperature: 98.1 F Pulse Rate: 64 Blood Pressure: 121/75 Respiratory Rate: 16 Pulse Ox: 98 Oxygen Delivery Method: Room Air Airway Assessment Mouth opens: >3 cm Mallampati Score: II Teeth Condition: Intact Neck Range of motion (ROM): Full ROM Labs Anesthesia Preop lab: CBC WBC, (4.4-11.0) 7.0 K/mm3 07/22/25, 10:56 RBC, (4.2-5.4) 4.01 M/mm3 L 07/22/25, 10:56 Hgb, (12.0-15.0) 11.5 g/dL L 07/22/25, 10:56 Hct, (37-47) 36.0 % L 07/22/25, 10:56 Plt Count, (150-450) 449 K/mm3 07/22/25, 10:56 CHEMISTRY Potassium, (3.3-5.1) 3.7 mmol/L 07/22/25, 10:56 Sodium, (133-145) 141 mmol/L 07/22/25, 10:56 Magnesium, (1.5-2.2) 2.1 mg/dL 07/22/25, 10:55 BUN, (4-19) 13 mg/dL 07/22/25, 10:56 Creatinine, (0.70-1.20) 0.93 mg/dL 07/22/25, 10:56 Glucose, (70-99) 100 mg/dL H 07/22/25, 10:56 TSH, (0.358-3.74) 1.14 uIU/mL 10/03/16, 13:49 COAG PT, (11.7-14.9) 14.0 SECONDS 07/22/25, 10:55 Urine Test Negative Negative 05/09/20, 09:10 Pre-Assessment Diagnosis/Proposed Procedure Planned Operative Procedure(s): ERAS 360 LUMBAR FUSION L4-5 POSS CEMENT AUGMENTATION Anesthesia History 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 When Was Last Pacemaker Check QUESTION #4 FULL TEXT: You/Your Family Experience fever (hyperthermia) with Anesthesia Last Oral Intake Last Oral intake: Last Oral Intake NPO since 03:00 08/04/25 06:39 Meds taken in AM with sips of Yes 08/04/25 06:39 water? Meds patient instructed to see med rec 08/04/25 06:39 take am of surgery PONV PONV - district recruiter: PONV - district recruiter Female Yes 07/21/25 13:37 HX of Motion Sickness Yes 07/21/25 13:37 HX of N/V After Surgery No 07/21/25 13:37 Non-Smoker Yes 07/21/25 13:37 Duration of Surgery greater Yes 07/21/25 13:37 than 60 minutes Number of Risk Factors 4 07/21/25 13:37 PONV Score Severe Risk 07/21/25 13:37 Height & Weight Height & Weight: Anesthesia: Height & Weight Height 5 ft 6 in 08/04/25 06:39 Weight: 96 kg 08/04/25 06:39 Body Mass Index (BMI) 34.1 08/04/25 06:39 Respiratory Assessment Respiratory Assessment - district recruiter: Respiratory Tract Infection Hx - district recruiter Hx Respiratory Tract Infection No 07/21/25 13:37 STOP Sleep Apnea STOP Sleep Apnea - district recruiter: STOP Sleep Apnea - district recruiter Hx Hypertension Yes: CONTROLLED WITH MED 07/21/25 13:37 Hx Sleep Apnea No 07/21/25 13:37 CPAP BIPAP Do you snore loudly (louder Yes 07/21/25 13:37 than talking or can be heard Do you often feel tired/ No 07/21/25 13:37 fatigued/ sleepy during daytime? Has anyone observed you stop No 07/21/25 13:37 breathing during sleep? STOP Results Positive 07/21/25 13:37 QUESTION #5 FULL TEXT : Do you snore loudly (louder than talking or can be heard through closed doors)? 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 Specify any problems Hx of Preganancy in last 3 No 07/21/25 13:37 Months Nurse Filling Out Transfusion DSCHRIBER 07/21/25 13:37 & Questions: Date: 07/21/25 07/21/25 13:37 Time: 13:40 07/21/25 13:37 Patient unable to answer at this time (ie. confused, unrespo /Reproduction History /Reproductive History - district recruiter: /Reproductive Hx- district recruiter Hx Now No 07/21/25 13:37 Gestational Age (in weeks): EDC: Hx Hx Para Hx Section SAB No 07/21/25 13:37 Does the father of the baby or his family experience fever w Father of the baby Malignant Hypertension history comment Active Medications Active Medications: Current Medications Generic Name Dose Route Start Last Admin Trade Name Muraliq PRN Reason Stop Dose Admin Acetaminophen 1,000 mg 08/04/25 07:30 08/04/25 06:49 Acetaminophen 500 Mg Tablet PO 08/04/25 07:31 1,000 mg PREOP ONE Administration Clindamycin Phosphate 900 mg in 50 mls @ 75 mls/hr 08/04/25 07:30 Cleocin IV 08/04/25 08:09 INTRAOP ONE Tranexamic Acid 1,000 mg/ 110 mls @ 440 mls/hr 08/04/25 07:30 Sodium Chloride IV 08/04/25 07:44 INTRAOP ONE Tranexamic Acid 1,000 mg/ 110 mls @ 440 mls/hr 08/04/25 07:30 Sodium Chloride IV 08/04/25 07:44 INTRAOP ONE Magnesium Sulfate 1 gm/ 102 mls @ 408 mls/hr 08/04/25 07:30 08/04/25 06:50 Dextrose IV 08/04/25 07:44 Infused PREOP ONE Infusion Lactated Ringer's 1,000 mls @ 15 mls/hr 08/04/25 06:00 08/04/25 06:25 IV 15 mls/hr .Q48H NIKO Administration Insulin Human Lispro 1 - 6 unit 08/04/25 07:30 Insulin Lispro 100 Unit/Ml Insuln.Pen SC 08/04/25 18:00 Q4H PRN PRN BG>/= 180, SEE PROTOCOL Protocol PFSH Medical History Loss of hearing Wears glasses Wears partial dentures Depression Anxiety Alcohol use Psoriasis Thyroid disease Arthritis Easy bruising Back pain Injury of head and neck Stroke Syncope Migraine headache Dietary restriction History of diverticulitis History of IBS Gastric reflux Shortness of breath on exertion Former smoker History of pain when walking History of edema History of echocardiogram History of stress test Cardiology follow-up encounter History of irregular heartbeat Hx of lipoma Lumbar stenosis Hypertension Asthma Implantable loop recorder present Home Medications Medication Instructions Recorded Last Taken Type albuterol sulfate 90 mcg/actuation 2 puff inhalation Q 6H PRN PRN 04/28/20 08/04/25 03:00 History aerosol inhaler Asthma amitriptyline 25 mg tablet 25 mg PO PRN PRN Sleep 08 6/20 Unknown History bupropion HCl 150 mg 24 hr tablet, 150 mg PO DAILY DEP RESSION 04/28/20 08/04/25 03:00 History extended release bupropion HCl 300 mg 24 hr tablet, 300 mg PO DAILY DEP RESSION 04/28/20 08/04/25 03:00 History extended release diltiazem HCl 360 mg 360 mg PO QHS HEART 04/28/20 08/03/25 22:00 History tablet,extended release 24 hr epinephrine 0.3 mg/0.3 mL 0.3 mg IM X1 ALLERGIC REACTI ON 04/28/20 Unknown History injection, auto-injector fexofenadine 60 mg tablet 60 mg PO DAILY ALLERGY 04/2808/03/25 03:00 History topiramate 200 mg tablet 200 mg PO BID MIGRAINES 03/1208/04/25 03:00 History candesartan 16 mg tablet 16 mg PO QDAY BP 09/11/24 03:00 History famotidine 20 mg tablet 20 mg PO BID GERD 09/11/24 1 10/04/24 03:00 History linaclotide 145 mcg capsule 145 mcg PO QAM PRN IBS Unknown History (Linzess) albuterol sulfate 2.5 mg/3 mL 2.5 mg inhalation Q4H [place] N wheezing 07/21/25 08/03/25 22:00 History (0.083 %) solution for nebulization budesonide 0.5 mg/2 mL suspension 0.5 mg inhalation Q1 2H PRN SOB 07/21/25 08/03/25 22:00 History for nebulization fluticasone furoate 100 1 ea inhalation DAILY ASTHMA 07/21/25 08/04/25 03:00 History mcg-vilanterol 25 mcg/dose inhalation powder (Breo Ellipta) folic acid 1 mg tablet 2 mg PO DAILY SUPPLEMENT 08/03/25 08:00 History hydroxyzine pamoate 25 mg capsule 25 mg PO Q8H PRN anx iety 07/21/25 Unknown History mecobalamin (vitamin B12) 1,000 1,000 mcg PO DAILY SUP PLEMENT 07/21/25 08/03/25 08:00 History mcg chewable tablet nystatin 100,000 unit/mL oral 1 ml PO DAILY PRN MOUTH SORE 07/21/25 Unknown History suspension pantoprazole 40 mg tablet,delayed 40 mg PO DAILY GERD 07/21/25 08/04/25 03:00 History release vitamins no.144-folic 2 tab PO DAILY SUPPLEME NT 07/21/25 08/03/25 08:00 History acid 400 mcg chewable tablet () pyridoxine (vitamin B6) 100 mg 100 mg PO DAILY SUPPLEM ENT 07/21/25 08/03/25 08:00 History tablet rizatriptan 10 mg disintegrating 10 mg PO Q2H PRN migr penny headache 07/21/25 07/14/25 History tablet valacyclovir 1 gram tablet 2,000 mg PO BID PRN cold so res 07/21/25 Unknown History Allergy/AdvReac Type Severity Reaction Status Date / Time latex Allergy Intermediate Rash Verified 08/04/25 06:45 shellfish derived Allergy Intermediate Hives Verified 08/04/25 06:45 azithromycin (From Zithromax) Allergy Mild Rash Verified 08/04/25 06:45 esomeprazole (From Nexium) Allergy Mild Rash Verified 08/04/25 06:45 gluten Allergy Mild Abd Verified 08/04/25 06:45 cramps/diarrhea codeine Allergy Anaphylaxis Verified 08/04/25 06:45 Penicillins (PCN) Allergy Rash Verified 08/04/25 06:45 Sulfa (Sulfonamide Allergy Vomiting Verified 08/04/25 06:45 Antibiotics) Surgical History History of esophagogastroduodenoscopy (EGD) Hx of colonoscopy S/P laparoscopic hysterectomy History of repair of hiatal hernia Social History Smoking Status: Former smoker Review of Systems (Anesthesia) ROS Narrative System reviewed and no additional complaints, except as documented. Physical Exam Const alert, oriented x3 and average body habitus Resp normal respiratory effort, normal air movement and clear to auscultation bilaterally Cardio regular rate, regular rhythm and no murmurs; Negative for diaphoretic
[2025-08-04] MEDS: Midazolam 2 MG/2 ML Syringe IV (07:25)
--- NOTE | 2025-08-04 07:25 | PCM.HP.BLA ---
History and Physical Date of Admission: 08/04/25 MR#: [id number] Acct: [id number] Name: LATIA STOCKTON Rep #: [id number] : 1970 Provider: Dr. Osiel Ji MD Age/Sex: 54/F Location: [facility] [place].[email or web address] Status: Signed Intake Vital Signs 04/15/2513:37 Height 5 ft 6 in Weight: 215 lb BMI 34.7 Intake Visit Reasons: lumbar spine Allergies azithromycin (From Zithromax) Allergy (Mild, Verified 07/27/25 11:03) Rash esomeprazole (From Nexium) Allergy (Mild, Verified 07/27/25 11:03) Rash gluten Allergy (Mild, Verified 07/27/25 11:03) Abd cramps/diarrhea codeine Allergy (Verified 07/27/25 11:03) Anaphylaxis Penicillins (PCN) Allergy (Verified 07/27/25 11:03) Rash Sulfa (Sulfonamide Antibiotics) Allergy (Verified 07/27/25 11:03) Vomiting Medications Medication Instructions Recorded Confirmed Type albuterol sulfate 90 mcg/actuation 2 puff inhalation Q6H PRN PRN 04/28/20 07/27/25 History aerosol inhaler Asthma amitriptyline 25 mg tablet 25 mg PO PRN PRN Sleep 04/28/20 07/27/25 History bupropion HCl 150 mg 24 hr tablet, 150 mg PO DAILY DEPRESSION 04/28/20 07/27/25 History extended release bupropion HCl 300 mg 24 hr tablet, 300 mg PO DAILY DEPRESSION 04/28/20 07/27/25 History extended release diltiazem HCl 360 mg 360 mg PO QHS HEART 04/28/20 07/27/25 History tablet,extended release 24 hr epinephrine 0.3 mg/0.3 mL 0.3 mg IM X1 ALLERGIC REACTION 04/28/20 07/27/25 History injection, auto-injector fexofenadine 60 mg tablet 60 mg PO DAILY ALLERGY 04/28/20 07/27/25 History topiramate 200 mg tablet 200 mg PO BID MIGRAINES 04/28/20 07/27/25 History candesartan 16 mg tablet 16 mg PO QDAY BP 09/11/24 07/27/25 History famotidine 20 mg tablet 20 mg PO BID GERD 09/11/24 07/27/25 History linaclotide 145 mcg capsule 145 mcg PO QAM PRN IBS 04/15/25 07/27/25 History (Linzess) albuterol sulfate 2.5 mg/3 mL 2.5 mg inhalation Q4H PRN wheezing 07/21/25 07/27/25 History (0.083 %) solution for nebulization budesonide 0.5 mg/2 mL suspension 0.5 mg inhalation Q12H PRN SOB 07/21/25 07/27/25 History for nebulization fluticasone furoate 100 1 ea inhalation DAILY ASTHMA 07/21/25 07/27/25 History mcg-vilanterol 25 mcg/dose inhalation powder (Breo Ellipta) folic acid 1 mg tablet 2 mg PO DAILY SUPPLEMENT 07/21/25 07/27/25 History hydroxyzine pamoate 25 mg capsule 25 mg PO Q8H PRN anxiety 07/21/25 07/27/25 History mecobalamin (vitamin B12) 1,000 1,000 mcg PO DAILY SUPPLEMENT 07/21/25 07/27/25 History mcg chewable tablet nystatin 100,000 unit/mL oral 1 ml PO DAILY PRN MOUTH SORE 07/21/25 07/27/25 History suspension pantoprazole 40 mg tablet,delayed 40 mg PO DAILY GERD 07/21/25 07/27/25 History release vitamins no.144-folic 2 tab PO DAILY SUPPLEMENT 07/21/25 07/27/25 History acid 400 mcg chewable tablet () pyridoxine (vitamin B6) 100 mg 100 mg PO DAILY SUPPLEMENT 07/21/25 07/27/25 History tablet rizatriptan 10 mg disintegrating 10 mg PO Q2H PRN migraine headache 07/21/25 07/27/25 History tablet valacyclovir 1 gram tablet 2,000 mg PO BID PRN cold sores 07/21/25 07/27/25 History PFSH Medical History Loss of hearing Wears glasses Wears partial dentures Depression Anxiety Alcohol use Psoriasis Thyroid disease Arthritis Easy bruising Back pain Injury of head and neck Stroke Syncope Migraine headache Dietary restriction History of diverticulitis History of IBS Gastric reflux Shortness of breath on exertion Former smoker History of pain when walking History of edema History of echocardiogram History of stress test Cardiology follow-up encounter History of irregular heartbeat Hx of lipoma Lumbar stenosis Hypertension Asthma Implantable loop recorder present Surgical History History of esophagogastroduodenoscopy (EGD) Hx of colonoscopy S/P laparoscopic hysterectomy History of repair of hiatal hernia Social History Smoking Status: Former smoker HPI lumbar spine Details: This documentation accurately reflects the service provided and the decisions made by me, Dr. Osiel iJ MD 07/27/25 1102. Part of today’s visit was documented by Monika VASQUEZ, acting as scribe. LATIA STOCKTON is a 54 year old F here today for preop, L4-5 anterior posterior fusion, possible cement augmentation lumbar spine, dos 08/04/25. The patient is a 54-year-old female presenting with lumbar radiculopathy and low bone density management. The patient reports persistent lower back pain radiating to both legs, with the left side being more affected. She experiences numbness in both legs after walking short distances, necessitating the use of a shopping cart for support during grocery trips. Balance issues are present, although no falls or injuries have occurred recently. The patient has a history of low bone density, for which she currently takes a multivitamin but no specific calcium or vitamin D supplements. The orthopedic surgeon recommended starting calcium and vitamin D supplementation to improve bone density, especially in preparation for the upcoming spinal surgery. The patient has a surgical history of hiatal hernia repair and incisional hernia repair, with midline upper abdominal scars noted. She also experienced an eye stroke four years ago, but has not been on any blood thinners since then. The vending route servicer suggested considering blood thinners around the time of surgery due to increased risk of thromboembolic events. The patient has a history of diabetes mellitus and tobacco use, both of which are risk factors for complications during and after surgery. - Musculoskeletal: Reports persistent lower back pain radiating to both legs, more on the left side. - Neurological: Reports numbness in both legs after walking short distances, balance issues present. Denies recent falls or injuries. - Endocrine: Reports history of diabetes mellitus. - Hematologic: Reports history of eye stroke four years ago. - General: Denies recent falls or injuries. Attestation: Documentation on this patient encounter was supported using ambient scribe technology/ voice AI technology. The patient consented to recording for the purpose of documenting the encounter. Provider reviewed content of the generated note prior to signature. 04/15/25: LATIA STOCKTON is a 54 year old F here today for lumbar spine. Patient would like to discuss surgery options. She states that she has tried physical therapy at [facility]. She states that the physical therapy didn't help. Patient has tried injections in the past, and the injections didn't help her at all. The last injection was in September diagnostic bilateral face joint injections at L4-L5, L5-S with Dr. Qureshi Patient states that her pain is getting worse then it was in the lower back. She can walk around the grocery store but reports it is painful. The low back pain is what bothers her the most. The pain is going down her legs. She has done both ice and heat, but seems to work. She is currently being seen by a vending route servicer for hyperhomocysteinemia but there is no current treatment for this. She denies diabetes, she does not take blood thinners. She does see a tool lathe operator for tachycardia. She did have an abdominal surgery for a hernia repair in the past. Ortho Exam General General: Yes no acute distress Neurologic: Yes alert and Yes oriented x3 Psychologic: Yes reasonable and appropriate Spine SPINE TESTING CERVICAL THORACIC LUMBAR Musculoskeletal Strength 0=absent - 5=normal Details: Neurological exam of the lower and upper extremities shows 5x5 power. Normal sensations across all dermatomes. Brisk right knee reflexes. No midline or paraspinal tenderness. Farhat's negative. Romberg's negative. Single leg stand shows poor balance. Coding Level of Care Code Off vis,est,level 4 Diagnoses Spinal stenosis of lumbar region with neurogenic claudication M48.062 Neurogenic claudication status: with neurogenic claudication Spondylolisthesis, lumbar region M43.16 Time Spent (min) 35 Assessment and Plan Assessment and Plan (1) Lumbar stenosis: Status: Acute Qualifiers: Neurogenic claudication status: with neurogenic claudication Qualified Code(s): M48.062 - Spinal stenosis, lumbar region with neurogenic claudication (2) Spondylolisthesis, lumbar region: Status: Acute Plan Again reviewed imaging of cervical and lumbar spine. - Imaging: MRI of the lower back from June of last year shows spondylolisthesis and spinal stenosis at L4-5 with nerve compression. 1. Lumbar radiculopathy - Surgical intervention is planned to stabilize the spine with screws and rods. - Emphasis is placed on postoperative mobility to aid recovery and reduce pain. 2. Low bone density - Initiate calcium and vitamin D supplementation to improve bone density. - Consider a DEXA scan in the future for further assessment. 3. Eye stroke - Consult with a vending route servicer regarding blood thinners around the time of surgery to prevent thromboembolic events. 4. Diabetes mellitus and tobacco use - Encourage good nutrition and mobility to aid recovery and reduce infection risk. - Start taking calcium and vitamin D supplements as recommended by your doctor. - Maintain good nutrition and stay active to help with recovery after surgery. - Consult with your vending route servicer about starting blood thinners around the time of surgery. - Follow postoperative instructions carefully, including mobility exercises to aid recovery. The patient would like to proceed with lumbar fusion surgery. We discussed the surgery in detail including risks, benefits, alteratives and post operative restrictions. She has tried and failed all non surgical options and her function and quality are declining therefore we will proceed with surgery at this time.Pt has recently been diagnosed with hyperhomocysteinemia, we will discuss this with anesthesia regarding surgery. Discussed this procedure in detail and explained the risks, benefits and alternatives. The risks of surgery include but are not limited to infection, bleeding, injury to nerves or vessels, need for further surgery, ileus, vascular injury, visceral injury, DVT, pulmonary embolism, pneumonia, atelectasis, cardiopulmonary event, pseudoarthrosis, hardware failure, gait abnormality, adjacent segment degeneration. Discussed post-surgery restrictions in detail such as no bending, lifting, or twisting. Answered all questions to the patient’s satisfaction. Patient understands and agrees to proceed with surgery. Consent was signed.Follow up in two weeks or sooner if pain, swelling, numbness or associated symptoms, or concerns develop. All questions answered. Patient in agreement of plan.
[2025-08-04] MEDS: Lidocaine 1% (5 ml sdv) 5 ML Vial IV (08:08)
--- NOTE | 2025-08-04 08:18 | RAD_ITS ---
EXAM: XR Lumbosacral Spine, 2 or 3 Views CLINICAL INDICATION: 360 LUMBAR FUSION L4-5, POSS AUGMENTATION TECHNIQUE: Frontal and lateral views of the lumbar spine and sacrum. COMPARISON: No relevant prior studies available. FINDINGS: A total of 14 fluoroscopic images were obtained. Total fluoroscopy time 140.8 seconds. Total radiation dose 61.24 mGy. RAD/Lumbar Spine 2 or 3 Views IMPRESSION: Fluoroscopic guidance was used intraoperatively. Please refer to operative not e for further details. Reading Location: [id number]
[2025-08-04] MEDS: Lactated Ringers 2,000 ML 2000 ML IV (08:40)
[2025-08-04] MEDS: TRANEXAMIC ACID 1,000 MG/10 ML ML 2000 MG IV (12:08)
[2025-08-04] MEDS: fentaNYL 100 MCG/2 ML Ampul IV (12:15)
--- NOTE | 2025-08-04 12:19 | PCM.OPRPT ---
Procedures Musculoskeletal 20xxx-29xxx: Other Procedure See Report Operative Report (Standard) Operative Information Date of Procedure: 08/04/25 Pre-Operative Diagnosis: L4-5 spondylolisthesis, stenosis with neurogenic claudication, osteopenia Post-Operative Diagnosis: Same Surgery/Procedure Performed: L4-5 oblique lumbar interbody fusion, anterior instrumentation r d internship: Yes Tank Car Mechanic: Bentley Zhou Tasks completed by patient care nursing assistant: Opening & closing, Hemostasis: Clamp, Hemostasis: Electrocautery, Retracting and Other ([id number] surgeon-vascular) Additional medical assistant secretary?: Yes Additional Pantograph Transferrer #2: Judie Xiong Tasks completed by medical assistant secretary #2: Closing, Hemostasis: Electrocautery and Retracting Type of Anesthesia: General RN Documented Start/Stop Times: Operation Date: 08/04/25 07:30 Case Time Into Pre-Op 08/04/25 05:47 Out of Pre-Op 08/04/25 07:30 Anesthesia Start 08/04/25 07:59 Into Room 08/04/25 07:59 Procedure Start 08/04/25 08:35 Procedure End 08/04/25 12:10 Procedure Start Time: 08:35 Procedure Stop Time: 12:10 Select all DRAINS/GRAFTS/IMPLANTS that apply: Graft Graft details: Allograft cancellous chips, autologous iliac crest bone marrow aspirate and Implanted device Implanted device details: DePuy [place] lateral lumbar interbody cage–peek, 4 web 2 hole plate Estimated Blood Loss: 50 cc Specimen collected: No Description of surgery: Preoperative diagnosis: L4-5 spondylolisthesis, stenosis with neurogenic claudication, osteopenia Postoperative diagnosis: Same Name of procedures L4-5 oblique lumbar interbody fusion (OLIF), anterior instrumentation, minimally invasive left sided approach, lateral decubitus: · L4-5 anterolateral spinal fusion · L4-5 insertion of cage · L4-5 anterior instrumentation · Bone graft aspirate left iliac crest separate incision · Allograft cancellous chips Attending Surgeon: Dr. Osiel Ji Co-surgeon: Dr. Bentley Zhou, vascular surgery Estimated blood loss: 50 mL Anesthesia: General Complications: None Indications: Patient is a 54-year-old pleasant lady who has had a long history of low back pain and left worse than right lower extremity radiation, difficulty walking distances. Xrays & MRI revealed L4-5 spondylolisthesis with instability with stenosis. After undergoing a prolonged period of nonoperative treatment, the patient elected to undergo surgical decompression & fusion. All surgical options were discussed with the patient including anterior and posterior approaches. All risks and benefits associated with the procedure were explained to the patient. The risks include but are not limited to infection, bleeding, injury to nerves and vessels including major vessels like IVC and aorta, persistent paresthesia, persistent pain, dural tear, need for further procedures, adjacent segment degeneration, pseudoarthrosis, hardware failure, retrograde ejaculation, paralytic ileus, etc. Procedure: The patient was identified in the preoperative holding suite using Unique patient identifiers. Skin was marked, consent was reviewed, and all questions were answered. The patient was then brought back to the operative room. A surgical timeout was performed to make sure correct procedure was being done on the correct patient and all operative room staff were on the same page. General endotracheal anesthesia was then given to the patient. Rivera catheter was inserted. The patient was then carefully positioned in right lateral decubitus position with the left side up on a regular OR table. Axillary roll was placed and all bony prominences were well- padded. Hip positioners were placed in the posterior buttocks and anterior sternal area. The surgical area was prepped and draped in usual fashion. Preoperative antibiotic was injected IV as preoperative antibiotic. A final timeout was then again done just before starting the procedure. A 2 inch incision oblique was taken in the left lower quadrant of the abdomen 2 fingerbreadths away from the iliac crest and the lower ribs. Sharp dissection with Bovie was carried out up to the fascia covering the external oblique. The external oblique, internal oblique and transversus abdominis muscles were split along the muscle fibers and retroperitoneal space was entered. Sponge sticks were utilized to move the bowel and peritoneum [id number]-way and psoas muscle was exposed staying within the retroperitoneal plane. [employer] Group[employer] retractor system was positioned and the retractor blade was applied onto the psoas. Please see details of approach in Dr. Zhou's note. The interval between psoas and midline structures was developed and appropriate retractors were placed. Once adequate interval was cleared, a disc space was identified and a marker x-ray was taken. This identified the L4-5 disc level. Annulotomy was done with a long handled knife. Pituitary was used to remove disc material. Curettes were used to prepare the endplates. Disc space spreaders were utilized to distract and increase the disc height. Near complete discectomy was performed. Smaller disc distractors were also used to bluntly perform a contralateral annulotomy. Trials of serially increasing sizes were used. A Jamshidi needle was used to aspirate bone marrow from the left anterior iliac crest through a separate incision and this aspirate was mixed with the allograft bone chips. A Depuy [place] cage of size of the 18 x 50 x 10 mm with 15 degrees lordosis was packed with corticocancellous allograft bone chips mixed with bone marrow aspirate. This was inserted into the L4-5 disc space. AP and lateral C-arm pictures were taken to confirm good position of the cage. Some bone chips were also packed around the cage. Significant instability was noted and decision was made to perform anterior instrumentation. A 4web 2 hole plate was applied separate from the cage at two 40 mm screws placed into L4 and L5 body covering the cage. Hemostasis was confirmed. The retractor blades were removed. Closure was done in layers with a continuous strand of # 1 Vicryl in all muscle layers. 2-0 Vicryl was used for subcutaneous tissue and 4-0 for Monocryl for the skin. Steri-Strips were applied and 4 x 4 gauze and Tegaderm were applied. Surgical Findings: See operative note Complications Complications: No
--- NOTE | 2025-08-04 12:27 | OP.PCM_ITS ---
Procedures Musculoskeletal 20xxx-29xxx: Other Procedure See Report Operative Report (Standard) Operative Information Date of Procedure: 08/04/25 Pre-Operative Diagnosis: L4-5 spondylolisthesis, stenosis with neurogenic claudication, osteopenia Post-Operative Diagnosis: Same Surgery/Procedure Performed: L4-5 posterior spinal instrumented fusion, cement augmentation well puller head: Yes Watch Repair Person: Judie Xiong Tasks completed by airline pilot/first officer: Closing, Implanting device, Hemostasis: Electrocautery and Retracting Type of Anesthesia: General RN Documented Start/Stop Times: Operation Date: 08/04/25 07:30 Case Time Into Pre-Op 08/04/25 05:47 Out of Pre-Op 08/04/25 07:30 Anesthesia Start 08/04/25 07:59 Into Room 08/04/25 07:59 Procedure Start 08/04/25 08:35 Procedure End 08/04/25 12:10 Procedure Start Time: 08:35 Procedure Stop Time: 12:10 Select all DRAINS/GRAFTS/IMPLANTS that apply: Graft Graft details: Allograft cancellous chips and Implanted device Implanted device details: Specle Viper prime pedicle screw instrumentation, bone cement Estimated Blood Loss: 50 cc Specimen collected: No Description of surgery: Preoperative diagnosis: L4-5 spondylolisthesis, stenosis with neurogenic claudication, osteopenia Postoperative diagnosis: Same Name of procedures: L4-5 posterior percutaneous pedicle screw instrumented fusion, cement augmentation, prone: · L4-5 posterior spinal fusion 36393 · L4-5 posterior pedicle screw instrumentation [id number] · Allograft cancellous chips [id number] Attending Surgeon: Dr. Osiel Ji Estimated blood loss: 50 mL (total for entire case) Anesthesia: General Complications: None Description of procedure: After the anterior procedure was complete, the patient was then turned supine. The patient was then transferred to Amauri table in prone position. Back was prepped and draped in usual fashion. C-arm AP view was then taken. C-arm was positioned in a way that L4 was centralized and superior endplate of was parallel to the beam. Spinous process was centered between the pedicles. Midline was marked with skin marker and lateral borders of the pedicles were also marked. Skin marker was also utilized to tania transversely across the middle of the pedicles at L4. 2 longitudinal paramedian incisions of 1 inch were placed. The fascia was incised vertically. Finger dissection was utilized to palpate the transverse process and facet joint. Viper Prime screws with towers were inserted and docked onto the transverse processes. This was then slowly moved medially to reach the superior articular process of L4. This was then confirmed on C-arm and then a mallet was utilized to drive the trocar into the pedicle going up to the medial wall of the pedicle on AP view. This was performed both sides. C-arm lateral view confirmed that the tip of the trocar was in the vertebral body, and the screw was advanced into the pedicle and vertebral body. This was repeated similarly at L5 bilaterally. Screw sizes were 7 x 50 mm at L4 and L5 on both sides. Using the [employer] instrumentation system, cannulas were placed cement. About 1.5 cc bone cement for screw was placed through the cannula and fenestrations of the pedicle screws under C-arm control. 50 mm precontoured titanium 5.5 mm lordotic gael on both sides were then passed through the screw extensions and reduced down to the screws with the help of Depuy [employer] instrumentation system on both sides. AP and lateral view of the C-arm showed good positioning of the screws and cages. Final tightening with the torque screwdriver was then completed. Ruel was utilized to roughen the facet joint at L4-5 on the right side. Cancellous allograft bone chips mixed with bone marrow aspirate were then placed over this decorticated area. Hemostasis was achieved. Closure was done in layers with 0 Vicryls for the fascia, 2-0 Vicryls for the subcutaneous tissue, and Monocryl for the skin. Dermabond was applied. Dressings were applied covered with Tegaderm. The patient was then turned supine onto a hospital bed. The patient was extubated and taken to PACU in stable condition. The patient tolerated the procedure well and no complications occurred. Depuy [place] cage & Viper Prime minimally invasive pedicle screw instrumentation system was utilized in this case. No dural tear was identified intraoperatively. I was present for the entirety of the case and performed the surgery. Photographer'S Model Judie Xiong PA-C. My physician surgeon assistant was a vital part of this case. They were important in appropriate retraction during the case, and protection of soft tissues during the procedure. Their intimate knowledge of the case and my steps aided in safe and expedient completion of the procedure as well as appropriate position of the patient during the surgery. They were also vital in assisting with closure under my direct supervision. Surgical Findings: See operative note Complications Complications: No
--- NOTE | 2025-08-04 12:35 | PCM.POST.ANE ---
Anesthesia: Postop Eval I Current Vital Signs Temperature: 97.5 F Pulse Rate: 85 Blood Pressure: 122/75 Respiratory Rate: 16 Pulse Ox: 99 Oxygen Delivery Method: Nasal Cannula Oxygen Flow Rate (L/min): 3 Assessment Airway patent: Yes Spontaneous unlabored respirations: Yes Mental status: Awake nausea: No Vomiting: No Anesthesia Complication: No Fluid Hydration Crystalloid volume administer (ml): 2,000 Total IV fluid infused: 2,000 Progress Note Anesthesia document: Postop Eval 1 completed: Yes
--- NOTE | 2025-08-04 16:31 | POSTOPAN2_ITS ---
Anesthesia Postop Eval I Sum Postop Eval Completion status Anesthesia document: Postop Eval 1 completed: Yes Anesthesia Postop Eval I Summary Anesthesia Postop Eval I Summary: Anesthesia Postop Eval I: Assessment Summary Airway patent Yes 08/04/25 12:36 MEDICAL OFFICE [email or web address].[email or web address] Spontaneous unlabored Yes 08/04/25 12:36 MEDICAL OFFICE SECRETARY.SHOF respirations Mental status Awake 08/04/25 12:36 MEDICAL OFFICE SECRETARY.SHOF nausea No 08/04/25 12:36 MEDICAL OFFICE SECRETARY.SHOF Vomiting No 08/04/25 12:36 MEDICAL OFFICE SECRETARY.SHOF Anesthesia Postop Eval I: Fluid Summary Crystalloid volume administer 2,000 08/04/25 12:36 MEDICAL OFFICE SECRETARY.SHOF (ml) Colloids volume administered ( ml) Blood Product volume administered (ml) Total IV fluid infused 2,000 08/04/25 12:36 MEDICAL OFFICE SECRETARY.SHOF Anesthesia Postop Eval I: Summary Notes Anesthesia Complication No 08/04/25 12:36 MEDICAL OFFICE SECRETARY.SHOF Anesthesia Complication Comment: Post-operative progress note Anesthesia: Postop Eval II Evaluation Mental status: Awake Pain Level: 0 nausea: No Vomiting: No Complications Anesthesia Complication: No
--- NOTE | 2025-08-04 16:31 | PCM.POSTANE2 ---
Anesthesia Postop Eval I Sum Postop Eval Completion status Anesthesia document: Postop Eval 1 completed: Yes Anesthesia Postop Eval I Summary Anesthesia Postop Eval I Summary: Anesthesia Postop Eval I: Assessment Summary Airway patent Yes 08/04/25 12:36 ANIMAL SHELTER CLERK.SHOF Spontaneous unlabored Yes 08/04/25 12:36 ANIMAL SHELTER CLERK.SHOF respirations Mental status Awake 08/04/25 12:36 ANIMAL SHELTER CLERK.SHOF nausea No 08/04/25 12:36 ANIMAL SHELTER CLERK.SHOF Vomiting No 08/04/25 12:36 ANIMAL SHELTER CLERK.SHOF Anesthesia Postop Eval I: Fluid Summary Crystalloid volume administer 2,000 08/04/25 12:36 ANIMAL SHELTER CLERK.SHOF (ml) Colloids volume administered ( ml) Blood Product volume administered (ml) Total IV fluid infused 2,000 08/04/25 12:36 ANIMAL SHELTER CLERK.SHOF Anesthesia Postop Eval I: Summary Notes Anesthesia Complication No 08/04/25 12:36 ANIMAL SHELTER CLERK.SHOF Anesthesia Complication Comment: Post-operative progress note Anesthesia: Postop Eval II Evaluation Mental status: Awake Pain Level: 0 nausea: No Vomiting: No Complications Anesthesia Complication: No
[2025-08-04] MEDS: Clindamycin 900 MG/50 ML BAG 75 MG IV (17:07)
--- NOTE | 2025-08-04 17:25 | PCM.OPRPT ---
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 estate internship: Yes Lead Recoverer: Judie Xiong Tasks completed by or first assist registered nurse: Opening, Closing, Opening & closing and Retracting Type of Anesthesia: General RN Documented Start/Stop Times: Operation Date: 08/04/25 07:30 Case Time Into Pre-Op 08/04/25 05:47 Out of Pre-Op 08/04/25 07:30 Anesthesia Start 08/04/25 07:59 Into Room 08/04/25 07:59 Procedure Start 08/04/25 08:35 Procedure End 08/04/25 12:10 Anesthesia End 08/04/25 12:24 Out of Room 08/04/25 12:24 Into Recovery 08/04/25 12:28 Out of Recovery 08/04/25 14:34 Into Phase II Recovery 08/04/25 14:35 Out of Phase II 08/04/25 15:48 Procedure Start Time: 08:35 Procedure Stop Time: 10:30 Select all DRAINS/GRAFTS/IMPLANTS that apply: Graft Graft details: Allograft cancellous chips, autologous iliac crest bone marrow aspirate and Implanted device Implanted device details: DePuy cougar lateral lumbar interbody cage–peek, 4 web 2 hole plate Estimated Blood Loss: 50 Specimen collected: No Description of surgery: HPI: Patient is a 54-year-old female with lumbar degenerative disc disease evaluated by Dr. Ji and felt to be appropriate for oblique lumbar interbody fusion. Vascular surgery assistance is requested for exposure. Description of procedure: Upon obtaining informed consent and verification correct patient procedure site the patient was taken to the op room where she was placed under general anesthesia. She was then positioned prepped and draped in usual sterile fashion a time was performed. Oblique incision was made superior to the iliac crest and Bovie used to dissect down through subcutaneous tissue then hand-held retractors put in position. Further dissection was carried down to the level the fascia which was incised parallel to the external oblique fibers. The muscle layers of the abdominal wall were then split parallel to their fibers sequentially with hand-held retractors moved progressively deeper into the wound. Blunt dissection then used to enter into the retroperitoneal space mobilizing the peritoneal contents and retracted them anteriorly until the psoas muscle was visualized. At this point the Syn frame self-retaining retractor was put in position. The psoas muscle was then mobilized and retracted posterior laterally with combination of blunt and Bovie dissection. Once an adequate view of the L4-L5 disc space was obtained Dr. Ji performed his discectomy and implant placement which she will describe in further detail. Upon completion the retroperitoneal space was inspected for hemostasis and the retractor removed along the abdominal contents to return to the [place] position. The wound was then irrigated with saline and the muscle layer was closed individually with 1 Vicryl in running fashion. The subcutaneous space was then further irrigated and the incision closed with 3-0 Vicryl, 4-0 Monocryl and dry sterile dressing. The patient was then repositioned for posterior approach with Dr. Ji will dictate separately in further detail. Surgical Findings: see above Complications Complications: No
--- NOTE | 2025-08-04 20:05 | PCM.PN.HOSP ---
Subjective Subjective Patient was seen and examined today at the request of spinal surgery, patient underwent an L4-5 posterior spinal instrumented fusion with cement augmentation today. Chronic medical problems include hypertension, chronic depression, asthma, history of supraventricular tachycardia, and GERD. At the time of my examination, patient is in recovery after surgery, she appears sleepy but awakens to verbal and tactile stimulation to answer simple questions. Objective Data Objective Data Vital Signs: Vital Signs Temp Pulse Resp BP Pulse Ox O2 Del Method O2 Flow Rate 97.5 F L 85 16 123/69 H 96 Room Air 4 08/04/25 18:16 08/04/25 18:16 08/04/25 18:16 08/04/25 18:16 08/04/25 18:16 08/04/25 18:16 08/04/25 14:00 Oxygen Flow Rate (L/min) 4 Oxygen Delivery Method Room Air Weight: 96 kg Body Mass Index (BMI) 34.1 Intake & Output: Intake and Output for Last 24 Hours 08/02/25 08/03/25 08/04/25 23:59 23:59 23:59 Intake Total 2152 / 2152 Output Total 650 / 650 Balance 1502 / 1502 Lab / Micro Data 07/22/25 10:56 07/22/25 10:56 Micro: Microbiology 07/22/25 10:56 Swab (Method) Nasal Screen MRSA/MSSA - Final Physical Exam Const no apparent distress Constitutional Narrative: Patient is sleepy but awakens to verbal and tactile stimulation General Appearance: cooperative, well kempt and well developed Orientation / Consciousness: awake, oriented to person and oriented to place HEENT normocephalic, head/scalp atraumatic and moist oral mucous membranes Eyes PERRL, EOMs intact bilaterally and conjunctivae normal Neck supple, no JVD, thyroid normal and no carotid bruits General: trachea midline Resp normal respiratory effort, no retractions, no use of accessory muscles and clear to auscultation bilaterally Auscultation: Negative for rales, rhonchi or wheezes Cardio regular rate, regular rhythm, S1 normal heart sound, S2 normal heart sound, no murmurs, no rub and no gallops GI normal to inspection, nondistended, normoactive bowel sounds, soft to palpation, non-tender and non-distended Extremity no clubbing, cyanosis or edema Skin no rashes or lesions noted General Skin Exam: no breakdown Neuro CN's II-XII intact bilaterally, moves all extremities, no focal motor deficits and no sensory deficits noted Neuro Narrative: Patient is sleepy but awakens to tactile and verbal stimulation Sensorium / Orientation: oriented to person and oriented to place Speech: speech normal Psych affect normal Assessment & Plan Assessment/Plan (1) Spondylolisthesis, lumbar region: PLAN: Plan 1. Essential hypertension-patient will remain on her equivalent home medication which is an ARB, blood pressure will be monitored #2 history of supraventricular tachycardia-patient takes Cardizem on a daily basis for prevention #3 asthma-patient is on inhalers as an outpatient, I will place her on DuoNeb aerosols every 6 hours while awake and budesonide aerosols twice daily #4 gastroesophageal reflux disease-patient takes Pepcid 20 mg twice daily as well as Protonix, I do not feel she needs Pepcid-she will be maintained on Protonix #5 chronic depression-patient is on Wellbutrin #6 degenerative disc disease of the lumbar spine-status post L4-5 posterior spinal instrumentation and fusion and cement augmentation-she will be seen by PT and OT as well as spinal surgery Total clinical time spent by myself addressing the patient's medical issues, reviewing all of her data, and collaborating with patient's care team: 55 minutes Charges/Coding Visit Charges Inpatient E&M: 24585 Subs Hosp L2
[2025-08-04] MEDS: Budesonide Respules 0.5 MG/2 ML AMPUL.NEB. INHALATION (20:52)
[2025-08-04] MEDS: Senna/Docusate Sodium 1 Tablet 2 TABLET PO (22:10)
[2025-08-05] MEDS: Clindamycin 900 MG/50 ML BAG 75 MG IV (00:19)
[2025-08-05] MEDS: 0.9% Saline Lock 10 ML Syringe IV ×3 (00:24→15:08)
[2025-08-05 00:41] VITALS: BP 110/73; PULSE 87; RESP 18; TEMP 36.6; O2SAT 93
[2025-08-05 04:29] VITALS: BP 112/66; PULSE 97; RESP 16; TEMP 36.6; O2SAT 96
--- NOTE | 2025-08-05 06:00 | RAD_ITS ---
PROCEDURE: LUMBAR SPINE 2 OR 3 VIEWS 08/05/2025 REASON FOR EXAM: S/P LUMBAR FUSION TECHNIQUE: Procedure Code: RADSPLL Modality: DX Procedure: LUMBAR SPINE 2 OR 3 VIEWS COMPARISON: Fluoroscopic images on 07/28/2025. Radiographs on 08/04/2025. FINDINGS: Unremarkable spinal fusion metallic hardware at L4-L5. Mild degenerative levoscoliosis apex at L3. Grade 1 anterolisthesis is noted at L4-L5. There are moderate diffuse spondylotic changes. Findings are demonstrated to by diffuse disc space narrowing, osteophyte formation and degenerative endplate sclerosis. There is diffuse facet joint arthropathy with secondary bilateral neural foramina narrowing. No fracture or dislocation is seen. No aggressive lytic or blastic bony lesion is noted. RAD/Lumbar Spine 2 or 3 Views IMPRESSION: Unremarkable spinal metallic hardware at L4-L5 from decompression and fusion. Moderate diffuse spondylosis. [facility]
[2025-08-05 07:08] LABS: Hematocrit 30.2 % (37-47); Hemoglobin 9.7 g/dL (12.0-15.0); Immature Granulocytes Count 0.090 X10^3/uL (0.0-0.0); Mean Corp Hgb Conc 32.1 g/dL (32-36); Mean Corpuscular Volume 91.2 fL (81-99); Mean Platelet Vol. 9.4 fl (6.2-12.0); NRBC Flagged by Analyzer 0 % (0-5); Platelet Count 369 K/mm3 (150-450); RBC Distribution Width CV 14.8 % (11.6-14.6); RBC Distribution Width SD 49.4 fl (35.1-43.9); Red Blood Count 3.31 M/mm3 (4.2-5.4); White Blood Count 12.7 K/mm3 (4.4-11.0)
[2025-08-05] MEDS: Budesonide Respules 0.5 MG/2 ML AMPUL.NEB. INHALATION (07:41)
[2025-08-05 07:50] VITALS: BP 103/61; PULSE 82; RESP 16; TEMP 36.6; O2SAT 92
[2025-08-05 07:52] LABS: Anion Gap 11 (5-15); BUN 10 mg/dL (4-19); BUN/Creat Ratio 12.6 RATIO (10-20); Calcium,Total 8.8 mg/dL (7.6-11.0); Carbon Dioxide 18.5 mmol/L (21.0-32.0); Chloride 104 mmol/L (98-108); Estimated Creatinine Clearance 93.89 ml/min (50-250); Glucose 108 mg/dL (70-99); Potassium 3.6 mmol/L (3.3-5.1)
--- NOTE | 2025-08-05 08:37 | PN.ORTHO_ITS ---
Subjective Subjective Postop day 1 L4-5 fusion with cement augmentation. The patient's pain has been well-controlled. The patient has been up and walking. The patient has passed gas and will attempt a solid meal today at breakfast. Plan for home discharge today. She will be seen by PT/OT. Seen with Dr. Ji. Objective Data Objective Data Vital Signs: Vital Signs Temp Pulse Resp BP Pulse Ox O2 Del Method O2 Flow Rate 97.9 F 82 16 103/61 92 Room Air 4 08/05/25 07:50 08/05/25 07:50 08/05/25 07:50 08/05/25 07:50 08/05/25 07:50 08/05/25 07:50 08/04/25 14:00 Oxygen Flow Rate (L/min) 4 Oxygen Delivery Method Room Air Weight: 211 lb 10.3 oz Body Mass Index (BMI) 34.1 Intake & Output: Intake and Output for Last 24 Hours 08/03/25 08/04/25 08/05/25 23:59 23:59 23:59 Intake Total 2452 / 2452 250 / 250 Output Total 1250 / 1250 1000 / 1000 Balance 1202 / 1202 -750 / -750 Lab / Micro Data 08/05/25 06:21 08/05/25 06:21 Labs: Laboratory Results - last 24 hr 08/05/25 06:21: WBC 12.7 H, RBC 3.31 L, Hgb 9.7 L, Hct 30.2 L, MCV 91.2, MCH 29.3, MCHC 32.1, RDW Std Deviation 49.4 H, RDW Coeff of Og 14.8 H, Plt Count 369, MPV 9.4, Immature Gran % (Auto) 0.700, Neut % (Auto) 84.8 H, Lymph % (Auto) 8.2 L, Nye % (Auto) 6.1, Eos % (Auto) 0.0, Baso % (Auto) 0.2, Absolute Neuts (auto) 10.8 H, Absolute Lymphs (auto) 1.04, Nucleated RBC % 0, Sodium 133, Potassium 3.6, Chloride 104, Carbon Dioxide 18.5 L, Anion Gap 11, BUN 10, Creatinine 0.80, Estim Creat Clear Calc 93.89, Est GFR (MDRD) Non-Af 87, BUN/Creatinine Ratio 12.6, Glucose 108 H, Calcium 8.8 Micro: Microbiology 07/22/25 10:56 Swab (Method) Nasal Screen MRSA/MSSA - Final Radiography Diagnostic Testing: Radiology Impression Lumbar Spine X-Ray 08/04/25 08:18 IMPRESSION: Fluoroscopic guidance was used intraoperatively. Please refer to operative note for further details. Reading Location: [facility] Lumbar Spine X-Ray 08/05/25 06:00 IMPRESSION: Unremarkable spinal metallic hardware at L4-L5 from decompression and fusion. Moderate diffuse spondylosis. Reading Location: [place] [address] Physical Exam Narrative Neurological examination of the lower extremity shows 5X5 power. Normal sensation across all dermatomes. Physical examination of the back and belly shows Tegaderm and gauze CDI. Const alert, oriented x3 and no apparent distress Assessment & Plan Assessment/Plan (1) Status post lumbar spinal fusion: PLAN: Plan Postop day 1 L4-5 fusion. Obtained and reviewed x-rays today which show hardware and bone graft in good position. The patient has passed gas and will attempt a solid meal today at breakfast. PT/OT will see her today, anticipate a home discharge. Home-going meds include oxycodone, acetaminophen, meloxicam, methocarbamol, senna. OARRS reviewed. Reviewed restrictions and no bending, lifting, twisting. Reviewed and educated on the use of the incentive spirometer. She will follow-up with us in 2 weeks in the clinic. Sooner if needed for any issues. Patient is in agreement to the plan.
[2025-08-05 08:38] VITALS: PULSE 66; RESP 16
--- NOTE | 2025-08-05 09:40 | PCM.PN.HOSP ---
Subjective Subjective Doing well, pain is controlled. She has mobility and sensation in both lower extremities Objective Data Objective Data Vital Signs: Vital Signs Temp Pulse Resp BP Pulse Ox O2 Del Method O2 Flow Rate 97.9 F 66 16 103/61 92 Room Air 4 08/05/25 07:50 08/05/25 08:38 08/05/25 08:38 08/05/25 07:50 08/05/25 07:50 08/05/25 07:50 08/04/25 14:00 Oxygen Flow Rate (L/min) 4 Oxygen Delivery Method Room Air Weight: 211 lb 10.3 oz Body Mass Index (BMI) 34.1 Intake & Output: Intake and Output for Last 24 Hours 08/04/25 08/05/25 08/06/25 03:59 03:59 03:59 Intake Total 2702 / 2702 Output Total 2250 / 2250 Balance 452 / 452 Lab / Micro Data 08/05/25 06:21 08/05/25 06:21 Labs: Laboratory Results - last 24 hr 08/05/25 06:21: WBC 12.7 H, RBC 3.31 L, Hgb 9.7 L, Hct 30.2 L, MCV 91.2, MCH 29.3, MCHC 32.1, RDW Std Deviation 49.4 H, RDW Coeff of Og 14.8 H, Plt Count 369, MPV 9.4, Immature Gran % (Auto) 0.700, Neut % (Auto) 84.8 H, Lymph % (Auto) 8.2 L, [place] % (Auto) 6.1, Eos % (Auto) 0.0, Baso % (Auto) 0.2, Absolute Neuts (auto) 10.8 H, Absolute Lymphs (auto) 1.04, Nucleated RBC % 0, Sodium 133, Potassium 3.6, Chloride 104, Carbon Dioxide 18.5 L, Anion Gap 11, BUN 10, Creatinine 0.80, Estim Creat Clear Calc 93.89, Est GFR (MDRD) Non-Af 87, BUN/Creatinine Ratio 12.6, Glucose 108 H, Calcium 8.8 Micro: Microbiology 07/22/25 10:56 Swab (Method) Nasal Screen MRSA/MSSA - Final Radiography Diagnostic Testing: Radiology Impression Lumbar Spine X-Ray 08/04/25 08:18 IMPRESSION: Fluoroscopic guidance was used intraoperatively. Please refer to operative note for further details. Reading Location: [facility] Lumbar Spine X-Ray 08/05/25 06:00 IMPRESSION: Unremarkable spinal metallic hardware at L4-L5 from decompression and fusion. Moderate diffuse spondylosis. Reading Location: [place] [id number] Physical Exam Narrative General: Alert, Oriented x3, Cooperative, No apparent distress HEENT: Atraumatic, PERRLA, EOMI, Normocephalic Oral: Moist Mucosa Neck: Supple, No JVD Lungs: Diminished, normal air movement, No rhonchi, No wheeze, No rales Cardiovascular: Regular rate, Regular Rhythm, Normal S1, Normal S2, No murmurs Abdomen: Soft, Non Tender, Non-Distended, No Hepato-splenomegaly Extremities: No edema, Capillary Refill Less than 3 Seconds Skin: No rashes, No breakdown Musculoskeletal: No Tenderness to Palpation of Joints or Extremities Neurological: No focal neurological deficits, moves all extremities, sensation intact Psych/Mental Status: Normal Affect, Appropriate Assessment & Plan Assessment/Plan (1) Spondylolisthesis, lumbar region: PLAN: Plan 1. Degenerative disc disease status post L4-5 posterior spinal fusion on 08/04/2025 – Pain management per primary – PT/OT – Discharge planning per primary – Reactive leukocytosis – Slight drop in her hemoglobin from outpatient lab work likely postoperative can monitor as an outpatient – Medically stable, will sign off 2. Essential HTN with a history of SVT – Blood pressure stable – Can resume her home blood pressure medications – Will monitor and make adjustments as necessary 3. GERD – Stable – Continue with her home medications 4. Anxiety/depression/IBS – Stable – Continue with her home meds DVT: Per primary Charges/Coding Visit Charges Inpatient E&M: 97967 Subs Hosp L2
--- NOTE | 2025-08-05 10:28 | CASEMGMT ---
Dx:s/p lumbar fusion LACE:1 6-Clicks:20, no PT or OT recommended. Medical record reviewed and patient evaluated for identification of discharge planning needs. Based on this review, at this time criteria are not present to indicate a need for discharge planning. Will remain available to assist with discharge planning needs as identified or requested. Pt has a walker that she can use should she need it at home.
[2025-08-05] MEDS: Senna/Docusate Sodium 1 Tablet 2 TABLET PO (12:37)
[2025-08-05] MEDS: buPROPion (XL) 300 MG TABLET.XL PO (12:37)
[2025-08-05] MEDS: buPROPion (XL) 150 MG TABLET.XL PO (12:39)
[2025-08-05 12:54] VITALS: BP 130/75; PULSE 94; RESP 16; TEMP 36.4; O2SAT 100
--- NOTE | 2025-08-05 13:17 | DCINST_ITS ---
Discharge Instructions DC O2, CPAP, BIPAP needs Home O2 Discharge instructions: No Follow Up Care Test Results: Test results from this visit will be discussed in further detail at your follow- up appointment, if applicable. Discharge Plan Admission Admit Date/Time: 08/04/25 12:22 Attending Provider: Osiel Ji Primary Care Provider: Dayana Romano NP Consulting Providers: Lester Hidalgo; Mark Keith; Yanci Alexander; Zeke Pryor; Zeke Osborn; Jonnathan Lantigua; Bentley Lipscomb; Morena Vazquez; Wali Shelton; Carlie Meyers; Jennifer Huynh; Vicente Guardado; Elvin Snyder; Xavier Andino; Loulou Pahn; Ken Quispe; Ruchi Adorno; Bora Pandey PA Instructions Patient Instructions: Lumbar Fusion Dc Additional Instructions / Restrictions: Keep Tegaderm and gauze clean and dry. If Tegaderm is intact, okay to shower. After 5 days remove Tegaderm and gauze and cover with a Band-Aid. Replace Band- Aid daily thereafter. No bending lifting or twisting. Follow-up in clinic in 2 weeks. Discharge Orders/Prescriptions Prescriptions: New acetaminophen 500 mg Tablet 1,000 mg PO Q8 Qty: 30 0RF meloxicam 15 mg Tablet 15 mg PO DAILY Qty: 30 0RF methocarbamol 500 mg Tablet 750 mg PO TID PRN (Reason: pain/spasms) Qty: 30 0RF oxycodone 5 mg Tablet 2.5 - 5 mg PO Q6H PRN (Reason: pain) 7 Days Qty: 28 0RF sennosides-docusate sodium [Stimulant Laxative Plus] 8.6-50 mg Tablet 2 tab PO BID PRN (Reason: constipation) Qty: 14 0RF enoxaparin [Lovenox] 40 mg/0.4 mL syringe 40 mg subcut DAILY 14 Days Qty: 4 0RF Continued famotidine 20 mg tablet 20 mg PO BID candesartan 16 mg tablet 16 mg PO QDAY Linzess 145 mcg capsule 145 mcg PO QAM PRN (Reason: IBS) fexofenadine 60 MG tablet 60 mg PO DAILY amitriptyline 25 MG tablet 25 mg PO PRN PRN (Reason: Sleep) epinephrine 0.3 MG syringe 0.3 mg IM X1 albuterol sulfate 1 INHALER inhaler 2 puff inhalation Q6H PRN PRN (Reason: Asthma) diltiazem HCl 360 MG tablet extended release 24 hr 360 mg PO QHS bupropion HCl 300 MG tablet extended release 24 hr 300 mg PO DAILY bupropion HCl 150 MG tablet extended release 24 hr 150 mg PO DAILY topiramate 200 MG tablet 200 mg PO BID valacyclovir 1 gram tablet 2,000 mg PO BID PRN (Reason: cold sores) fluticasone furoate-vilanterol [Breo Ellipta] 100-25 mcg/dose blister with device 1 ea INHALATION DAILY pantoprazole 40 mg tablet,delayed release (DR/EC) 40 mg PO DAILY hydroxyzine pamoate 25 mg capsule 25 mg PO Q8H PRN (Reason: anxiety) rizatriptan 10 mg tablet,disintegrating 10 mg PO Q2H PRN (Reason: migraine headache) budesonide 0.5 mg/2 mL suspension for nebulization 0.5 mg inhalation Q12H PRN (Reason: SOB) Patient Comments: USE 1 VIAL VIA NEBULIZER TWICE DAILY FOR 4 WEEKS albuterol sulfate 2.5 mg /3 mL (0.083 %) solution for nebulization 2.5 mg inhalation Q4H PRN (Reason: wheezing) nystatin 100,000 unit/mL suspension 1 ml PO DAILY PRN (Reason: MOUTH SORE) Rx Instructions: swish and swallow 400 mcg tablet,chewable 2 tab PO DAILY mecobalamin (vitamin B12) 1,000 mcg tablet,chewable 1,000 mcg PO DAILY folic acid 1 mg tablet 2 mg PO DAILY pyridoxine (vitamin B6) 100 mg tablet 100 mg PO DAILY Referrals / Follow Up: Dayana Romano TEASEL GIG OPERATOR, TEASEL GIG OPERATOR-C [Primary Care Provider, Family Practice] Disposition Disposition (needs filled in before D/C Order can be placed): Home, Self Care
--- NOTE | 2025-08-05 13:26 | CASEMGMT ---
Addendum entered by Dee Cross 08/05/25 15:06: TC to pharmacy, no cost for the lovenox. Addendum entered by Dee Cross 08/05/25 14:08: TC to [facility] and they are still clarifying med. Spoke with charge nurse who states pt did well with lovenox injection and pt has given herself injections in the past. Pt has dc order placed. Original Note: TC to [facility], spoke with [place] who states the order is for 10 days and it came back at $0. She is clarifying if it is for 10 or 14 days. She will call this RN CM back with cost after med is clarified.
--- NOTE | 2025-08-05 14:12 | PHA.DC.COU.R ---
Pharmacy [facility] has performed discharge medication counseling for this patient. The patient was counseled on the following discharge medications and changes in medications for homegoing review. - Acetaminophen 500 mg tablet, Enoxaparin 40 mg syringe, Meloxicam 15 mg tablet, Methocarbamol 500 mg tablet, Oxycodone 5 mg tablet, Sennosides/docusate 8.6/50 mg tablet The Reason for Use, instructions for use, and potential side effects were reviewed for all new medications. The patient's questions regarding all of their medications were answered. The patient was able to verbally demonstrate an understanding of their discharge medications. Medications at Discharge Home Medications albuterol sulfate 90 mcg/actuation aerosol inhaler 2 puff inhalation Q6H PRN PRN Asthma 04/28/20 amitriptyline 25 mg tablet 25 mg PO PRN PRN Sleep 04/28/20 bupropion HCl 150 mg 24 hr tablet, extended release 150 mg PO DAILY DEPRESSION 04/28/20 bupropion HCl 300 mg 24 hr tablet, extended release 300 mg PO DAILY DEPRESSION 04/28/20 diltiazem HCl 360 mg tablet,extended release 24 hr 360 mg PO QHS HEART 04/28/20 epinephrine 0.3 mg/0.3 mL injection, auto-injector 0.3 mg IM X1 ALLERGIC REACTION 04/28/20 fexofenadine 60 mg tablet 60 mg PO DAILY ALLERGY 04/28/20 topiramate 200 mg tablet 200 mg PO BID MIGRAINES 04/28/20 candesartan 16 mg tablet 16 mg PO QDAY BP 09/11/24 famotidine 20 mg tablet 20 mg PO BID GERD 09/11/24 linaclotide 145 mcg capsule (Linzess) 145 mcg PO QAM PRN IBS 04/15/25 albuterol sulfate 2.5 mg/3 mL (0.083 %) solution for nebulization 2.5 mg inhalation Q4H PRN wheezing 07/21/25 budesonide 0.5 mg/2 mL suspension for nebulization 0.5 mg inhalation Q12H PRN SOB 07/21/25 fluticasone furoate 100 mcg-vilanterol 25 mcg/dose inhalation powder (Breo Ellipta) 1 ea inhalation DAILY ASTHMA 07/21/25 folic acid 1 mg tablet 2 mg PO DAILY SUPPLEMENT 07/21/25 hydroxyzine pamoate 25 mg capsule 25 mg PO Q8H PRN anxiety 07/21/25 mecobalamin (vitamin B12) 1,000 mcg chewable tablet 1,000 mcg PO DAILY SUPPLEMENT 07/21/25 nystatin 100,000 unit/mL oral suspension 1 ml PO DAILY PRN MOUTH SORE 07/21/25 pantoprazole 40 mg tablet,delayed release 40 mg PO DAILY GERD 07/21/25 vitamins no.144-folic acid 400 mcg chewable tablet () 2 tab PO DAILY SUPPLEMENT 07/21/25 pyridoxine (vitamin B6) 100 mg tablet 100 mg PO DAILY SUPPLEMENT 07/21/25 rizatriptan 10 mg disintegrating tablet 10 mg PO Q2H PRN migraine headache 07/21/25 valacyclovir 1 gram tablet 2,000 mg PO BID PRN cold sores 07/21/25 acetaminophen 500 mg tablet 1,000 mg (2 x 500 mg) PO Q8 #30 tabs 08/05/25 enoxaparin 40 mg/0.4 mL subcutaneous syringe (Lovenox) 40 mg (0.4 mL) subcut DAILY 14 days #4 mL 08/05/25 meloxicam 15 mg tablet 15 mg PO DAILY #30 tabs 08/05/25 methocarbamol 500 mg tablet 750 mg (1.5 x 500 mg) PO TID PRN pain/spasms #30 tabs 08/05/25 oxycodone 5 mg tablet 2.5 - 5 mg (0.5 - 1 x 5 mg) PO Q6H PRN pain 7 days #28 tabs 08/05/25 sennosides 8.6 mg-docusate sodium 50 mg tablet (Stimulant Laxative Plus) 2 tab PO BID PRN constipation #14 tabs 08/05/25
== END 2025-08-05 15:20 | disposition home or self-care (01) | DRG 427 ==
LOC: ACINP 14:59 → MS3 15:53
PROVIDERS: Anesthesiology; Student in an Organized Health Care Education/Training Program; Admitting Provider Orthopaedic Surgery Orthopaedic Surgery of the Spine; PCP Nurse Practitioner Primary Care; Referring Provider Orthopaedic Surgery Orthopaedic Surgery of the Spine; Visit Provider Orthopaedic Surgery Orthopaedic Surgery of the Spine
DX: M48.062 Spinal stenosis, lumbar region with neurogenic claudication (principal); E72.11 Homocystinuria; E11.9 Type 2 diabetes mellitus without complications; J45.909 Unspecified asthma, uncomplicated; I10 Essential (primary) hypertension; F32.A Depression, unspecified; M51.16 Intervertebral disc disorders with radiculopathy, lumbar region; K21.9 Gastro-esophageal reflux disease without esophagitis; M43.16 Spondylolisthesis, lumbar region; K58.9 Irritable bowel syndrome, unspecified; Z87.891 Personal history of nicotine dependence; Z90.710 Acquired absence of both cervix and uterus; M85.80 Other specified disorders of bone density and structure, unspecified site
CPT/HCPCS: 36415; 72100; 76000; 80048; 80076; 83036; 83735; 85025; 85610; 85730; 86850; 86900; 86901; 87077; 87081; 94640; 97162; 97165; A4648; C1713; A4216; J2405; J3475